=== PATIENT | female | born 1995 | race Caucasian/White ===

== ENCOUNTER 2021-04-14 07:43 | Emergency (ER) | payer MEDICAID, SELFPAY ==
[2021-04-14 07:53] VITALS: BP 110/61; PULSE 65; RESP 18; TEMP 36.8; O2SAT 100; BMI 34.3
[2021-04-14 08:03] VITALS: BP 110/61; PULSE 65; RESP 18; TEMP 36.8; O2SAT 100
--- NOTE | 2021-04-14 08:03 | ED.NAVMDI ---
HPI - Nausea/Vomiting/Diarrhea General Chief complaint: Nausea/Vomiting/Diarrhea Stated complaint: discomfort, nausea pt wants covid test done Time Seen by Provider: 04/14/21 08:03 Source: patient Mode of arrival: ambulatory Limitations: no limitations History of Present Illness MD elicited complaint: nausea Onset (ago): week(s) (1) Associated nausea: Yes Associated abdominal pain: No Location of pain: none Severity: mild Exacerbating factors: eating Relieving factors: none Context: other (? hx of hyperemesis with prior ) Associated symptoms: other (dysuria) Related Data Previous Rx's Medication Instructions Recorded doxylamine succinate 25 mg tablet 25 mg PO BID PRN #30 tab 04/14/21 metoclopramide HCl 5 mg tablet 5 mg PO TID PRN #20 tab 04/14/21 (Reglan) nitrofurantoin 100 mg PO BID 7 Days #14 cap 04/14/21 monohydrate/macrocrystals 100 mg capsule (Macrobid) vits no.108-iron,carbonyl 1 tab PO DAILY #30 tab 04/14/21 30 mg iron-folic acid 1 mg tablet (Kosher Plus Iron) pyridoxine (vitamin B6) 25 mg 25 mg PO BID PRN #30 tab 04/14/21 tablet Allergies Allergy/AdvReac Type Severity Reaction Status Date / Time No Known Allergies Allergy Unverified 05/30/20 17:09 [No Known Allergies*] Review of Systems Review of Systems: Constitutional : No Weight loss, No Fever, No Chills, No Fatigue, No Malaise ENT/Mouth : No sore throat, No Rhinorrhea Eyes: No Eye Pain, No Swelling, No Redness Cardiovascular : No Chest Pain, No SOB, No Dyspnea on Exertion, No Orthopnea, No Edema, No Palpitations Respiratory : No Cough, No Sputum, No Wheezing Gastrointestinal : pos Nausea, pos Vomiting, No Diarrhea, No Constipation, No abdominal Pain, No Hematochezia, No Melena Genitourinary : pos Dysuria, No Urinary Frequency, No Hematuria, pos irregular periods Musculoskeletal : No joint pain, No Myalgias, No Joint Swelling Skin : No Skin Lesions, No rash Neuro : No Weakness, No Numbness, No Dizziness, No Headache Psych : No Anxiety/Panic, No Depression Heme/Lymph: No Bruising, No Bleeding,No Lymphadenopathy Endocrine : No Polyuria, No Polydipsia All other systems reviewed and are negative Gastrointestinal: Gastrointestinal: Reports nausea PMFSH Past Medical History Attestation statement: The following information was validated with the patient. Medical History Anxiety Social History Social History Patient Tobacco Use Status: Never used Tobacco Use of substances other than those prescribed or required for medical reasons: No Advance Directives: Yes Advance Directives Information Provided: Yes Advance Directives on File: No Physical Exam Vital Signs: Vital Signs: Last Vital Signs Temp 98.2 F 04/14/21 08:03 Pulse 65 04/14/21 08:03 Resp 18 04/14/21 08:03 BP 110/61 04/14/21 08:03 Pulse Ox 100 04/14/21 08:03 Body Mass Index 34.3 Appearance: Alert. Oriented X3. No acute distress. Eyes: Pupils equal, round and reactive to light. ENT: Pharynx normal. Neck: Normal inspection. Neck supple. CVS: Normal heart rate and rhythm. Pulses normal. Respiratory: No respiratory distress. Breath sounds normal. Abdomen: Soft and nontender. Skin: Skin warm and dry. Normal skin color. Normal skin turgor. Extremities: No lower extremity edema. No calf ttp Neuro: Oriented X 3. No motor deficit. No sensory deficit. MDM - Nausea/Vomiting/Diarrhea MDM Narrative Medical decision making narrative: 25 yo female G1 - here with dysuria and nausea x 1 week - POS UTI and pos test - not toxic, no abdominal ttp no signs of dehydration, will refer to OBGYN after positive test, given benign abdomen doubt ectopic Lab Data Labs: Lab Results 04/14/21 04/14/21 Range/Units 08:07 08:07 Urine Color YELLOW Urine Appearance HAZY Urine pH 7.0 (5.0-8.0) Ur Specific [place] 1.015 (1.005-1.025) Urine Protein TRACE (NEG-TRACE) MG/DL Urine Glucose (UA) NEG (NEG) MG/DL Urine Ketones 5 (NEG) MG/DL Urine Blood TRACE (NEG) Urine Nitrite POS H (NEG) Ur Leukocyte Esterase NEG (NEG) Urine RBC 0-2 (0) /HPF Urine WBC 5-9 H (0-4) /HPF Ur Squamous Epith Cells 1+ /LPF Urine Bacteria 3+ /LPF Urine Test POSITIVE H (NEGATIVE) Discharge Plan Discharge Clinical Impression: Qualifiers: Weeks of gestation: less than 8 weeks Qualified Code(s): Z3A.01 - Less than 8 weeks gestation of UTI (urinary tract infection) Qualifiers: Urinary tract infection type: acute cystitis Hematuria presence: without hematuria Qualified Code(s): N30.00 - Acute cystitis without hematuria Patient Disposition: Home, Self-Care Instructions: Nausea and Vomiting in (ED) Additional Instructions: return to ED for any worsening symptoms or concerns COVID TEST WAS NEGATIVE please call and follow up with your OB Prescriptions: New nitrofurantoin monohyd/m-cryst [Macrobid] 100 mg capsule 100 mg PO BID 7 Days Qty: 14 RF: 0 metoclopramide HCl [Reglan] 5 mg tablet 5 mg PO TID PRN (Reason: nausea and vomiting) Qty: 20 RF: 0 pyridoxine (vitamin B6) 25 mg tablet 25 mg PO BID PRN (Reason: nausea and vomiting) Qty: 30 RF: 0 doxylamine succinate 25 mg tablet 25 mg PO BID PRN (Reason: nausea and vomiting) Qty: 30 RF: 0 Kosher Plus Iron 30 mg iron- 1 mg tablet 1 tab PO DAILY Qty: 30 RF: 0 Stand Alone Forms: Work/School Release
[2021-04-14 08:14] LABS: Appearance Urine HAZY; Color Urine YELLOW; Glucose Urine UA NEG (NEG); Leukocyte Esterase Urine NEG (NEG); Nitrite Urine POS (NEG); Specific Gravity - Urine 1.015 (1.005-1.025); UACC Culture Trigger YES; Urine Blood TRACE (NEG); Urine Ketones 5 MG/DL (NEG); Urine Protein TRACE MG/DL (NEG-TRACE)
[2021-04-14 08:15] LABS: UPreg QC Valid YES; Urine Pregnancy POSITIVE (NEGATIVE)
[2021-04-14 08:28] LABS: Bacteria Urine 3+ /LPF; RBC Urine 0-2 /HPF (0); Squamous Epithelial Cell Urine 1+ /LPF
[2021-04-14 09:07] LABS: COVID-19 Test Negative (Negative); IDNOW Serial# 9DD0AD1C
== END 2021-04-14 09:16 | disposition home or self-care (01) ==
PROVIDERS: Emergency Provider Emergency Medicine; PCP Pediatrics
DX: O23.11 Infections of bladder in pregnancy, first trimester (principal); N30.00 Acute cystitis without hematuria; O21.9 Vomiting of pregnancy, unspecified; Z3A.01 Less than 8 weeks gestation of pregnancy; Z20.822 Contact with and (suspected) exposure to COVID-19
CPT/HCPCS: 36415; 81001; 81025; 87086; 87088; 87186; 87635; 99284

== ENCOUNTER 2021-04-16 11:55 | Emergency (ER) | payer MEDICAID, SELFPAY ==
[2021-04-16 12:48] VITALS: BP 110/65; PULSE 79; RESP 18; TEMP 36; O2SAT 100; BMI 34.4
--- NOTE | 2021-04-16 13:28 | ED.NAVMDI ---
HPI - Nausea/Vomiting/Diarrhea General Chief complaint: Nausea/Vomiting/Diarrhea Stated complaint: vomiting - +preg Time Seen by Provider: 04/16/21 13:27 Source: patient Mode of arrival: ambulatory Limitations: no limitations History of Present Illness HPI Narrative: 25 y/o female who presents to the ER with c/o persistent nausea and vomiting for the last 2 days. She has been unable to keep anything down and is vomiting throughout the night. She reports some abdominal soreness when she vomits but no abdominal pain. She denies vaginal bleeding or cramping. No vaginal discharge, fever or chills. She thinks her LMP was sometime in January but she reports having irregular periods. She was seen here on 04/14 for nausea and r/o COVID, found to be . MD elicited complaint: nausea and vomiting Onset (ago): day(s) Description of vomiting: bilious Associated nausea: Yes Associated abdominal pain: Yes Location of pain: diffuse Pain consistency: intermittent Severity: mild Quality: aching Exacerbating factors: eating Relieving factors: none Associated symptoms: loss of appetite, malaise, nausea/vomiting and weakness Treatment prior to arrival: other (reglan) Related Data Previous Rx's Medication Instructions Recorded doxylamine succinate 25 mg tablet 25 mg PO BID PRN #30 tab 04/14/21 metoclopramide HCl 5 mg tablet 5 mg PO TID PRN #20 tab 04/14/21 (Reglan) nitrofurantoin 100 mg PO BID 7 Days #14 cap 04/14/21 monohydrate/macrocrystals 100 mg capsule (Macrobid) vits no.108-iron,carbonyl 1 tab PO DAILY #30 tab 04/14/21 30 mg iron-folic acid 1 mg tablet (Kosher Plus Iron) pyridoxine (vitamin B6) 25 mg 25 mg PO BID PRN #30 tab 04/14/21 tablet promethazine 25 mg rectal 25 mg SD Q6H PRN #12 ea 04/16/21 suppository Allergies Allergy/AdvReac Type Severity Reaction Status Date / Time No Known Allergies Allergy Unverified 05/30/20 17:09 [No Known Allergies*] Review of Systems Constitutional: Constitutional: Denies chills, Reports fatigue, Denies fever(s), Reports lethargy and Reports malaise Eyes: Eyes: Reports no additional eye complaints ENT: Reports system reviewed and no additional complaints, except as documented and Denies dizziness Cardiovascular: Cardiovascular: Denies chest pain, Denies syncope and Denies dyspnea on exertion Respiratory: Respiratory: Denies cough, Denies pain on inspiration and Denies dyspnea on exertion Gastrointestinal: Gastrointestinal: Reports abdominal pain, Denies coffee ground emesis, Denies GI cramping, Reports nausea, Reports vomiting and Denies hematemesis Genitourinary: Genitourinary: Denies abnormal vaginal bleeding, Denies hematuria, Denies dysuria, Denies flank pain, Denies urinary incontinence, Denies urinary hesitancy and Denies urinary urgency Musculoskeletal: Musculoskeletal: Denies myalgias Neurologic: Denies dizziness and Denies syncope Endocrine: Endocrine: Reports fatigue PMF Past Medical History Medical History Anxiety Social History Social History Patient Tobacco Use Status: Never used Tobacco Advance Directives: No Advance Directives Information Provided: No Patient : Yes Physical Exam Vital Signs: Vital Signs: Last Vital Signs Temp 96.8 F 04/16/21 12:48 Pulse 55 04/16/21 15:52 Resp 18 04/16/21 15:52 BP 102/49 L 04/16/21 15:52 Pulse Ox 100 04/16/21 15:52 Body Mass Index 34.4 Appearance: Alert. Oriented X3. No acute distress. Eyes: Pupils equal, round and reactive to light. ENT: Pharynx normal. Neck: Normal inspection. Neck supple. CVS: Normal heart rate and rhythm. Pulses normal. Respiratory: No respiratory distress. Breath sounds normal. Abdomen: Soft and nontender. +BS x4 Skin: Skin warm and dry. Normal skin color. Normal skin turgor. No rashes. Extremities: No lower extremity edema. Neuro: Oriented X 3. No motor deficit. No sensory deficit. Course Course Course Narrative: 25 y/o female who is currently (found out last week), with unknown LMP presenting with persistent N/V for the last 2 days. She reports history of hyperemesis with her prior . Has been taking B6 and intermittently taking reglan with no improvement. She is on Macrobid for UTI which could be contributing. Will check labs, repeat UA, give IVF and zofran now. Will reassess. Reevaluation(s) Reevaluation #1: K+ on the lower end of normal. Nausea significantly improved, she is tolerating PO. Tolerated PO KCl supplementation as well. UA improving. She is stable for discharge home with trial of SD phenergan for severe vomiting and follow up with PHYSICAL THERAPIST for further management. She is stable for d/c home. MDM - Nausea/Vomiting/Diarrhea Lab Data Result diagrams: 04/16/21 14:19 04/16/21 14:19 Labs: Lab Results 04/16/21 04/16/21 04/16/21 Range/Units 14:19 14:19 14:29 WBC 10.2 (4.8-10.8) X10*3/uL RBC 4.65 (4.20-5.50) X10*6/uL Hgb 13.8 (12.0-16.0) g/dl Hct 40.2 (37-47) % MCV 86.5 (80-98) fL MCH 29.7 (27.0-33.0) pg MCHC 34.3 (31.0-35.0) g/dl RDW 12.8 (11.0-16.0) % Plt Count 238 (160-400) X10*3/uL MPV 10.0 (9.4-12.3) fL Immature Gran % (Auto) 0.3 (0.0-0.4) % Neut % (Auto) 72.2 (45-73) % Lymph % (Auto) 19.6 L (20-40) % [place] % (Auto) 7.6 (2-11) % Eos % (Auto) 0.1 (0-4) % Baso % (Auto) 0.2 (0-2) % Lymph # (Auto) 2.0 (1.2-4.9) X10*3/uL [place] # (Auto) 0.8 (0.1-1.2) X10*3/uL Eos # (Auto) 0.0 (0.0-0.4) X10*3/uL Baso # (Auto) 0.0 (0.0-0.2) X10*3/uL Abs Immat Gran (auto) 0.03 (0.00-0.03) X10*3/uL Absolute Neuts (auto) 7.3 (2.0-8.3) X10*3/uL Absolute Nucleated RBC 0.000 (0.0-0.012) X10*3/uL Nucleated RBC % (auto) 0.0 (0.0-0.2) /100WBC Sodium 136 (135-145) mmol/L Potassium 3.3 (3.3-5.1) mmol/L Chloride 105 (96-108) mmol/L Carbon Dioxide 20 L (22-29) mmol/L Anion Gap 14 (12-20) BUN 6 L (9-16) mg/dL Creatinine 0.68 (0.5-1.4) mg/dL Estim Creat Clear Calc 139.5 Estimated GFR > 60 Random Glucose 88 (60-115) mg/dL Calcium 9.5 (8.4-10.2) mg/dL Magnesium 1.9 (1.6-2.6) mg/dL Total Bilirubin 0.9 (0.0-1.0) mg/dL Direct Bilirubin 0.3 (0.0-0.5) mg/dL AST 14 (5-31) U/L ALT 19 (0-31) U/L Alkaline Phosphatase 50 (39-117) U/L Total Protein 7.0 (6.5-8.0) g/dL Albumin 4.4 (3.5-5.0) g/dL Urine Color YELLOW Urine Appearance CLOUDY Urine pH 6.5 (5.0-8.0) Ur Specific [place] 1.020 (1.005-1.025) Urine Protein TRACE (NEG-TRACE) MG/DL Urine Glucose (UA) NEG (NEG) MG/DL Urine Ketones >=80 (NEG) MG/DL Urine Blood TRACE (NEG) Urine Nitrite NEG (NEG) Ur Leukocyte Esterase TRACE H (NEG) Urine RBC 1-4 (0) /HPF Urine WBC 1-4 (0-4) /HPF Ur Squamous Epith Cells 3+ /LPF Urine Bacteria 1+ /LPF Urine Mucus 1+ /LPF Urine Test (NEGATIVE) 04/16/21 Range/Units 14:29 WBC (4.8-10.8) X10*3/uL RBC (4.20-5.50) X10*6/uL Hgb (12.0-16.0) g/dl Hct (37-47) % MCV (80-98) fL MCH (27.0-33.0) pg MCHC (31.0-35.0) g/dl RDW (11.0-16.0) % Plt Count (160-400) X10*3/uL MPV (9.4-12.3) fL Immature Gran % (Auto) (0.0-0.4) % Neut % (Auto) (45-73) % Lymph % (Auto) (20-40) % [place] % (Auto) (2-11) % Eos % (Auto) (0-4) % Baso % (Auto) (0-2) % Lymph # (Auto) (1.2-4.9) X10*3/uL [place] # (Auto) (0.1-1.2) X10*3/uL Eos # (Auto) (0.0-0.4) X10*3/uL Baso # (Auto) (0.0-0.2) X10*3/uL Abs Immat Gran (auto) (0.00-0.03) X10*3/uL Absolute Neuts (auto) (2.0-8.3) X10*3/uL Absolute Nucleated RBC (0.0-0.012) X10*3/uL Nucleated RBC % (auto) (0.0-0.2) /100WBC Sodium (135-145) mmol/L Potassium (3.3-5.1) mmol/L Chloride (96-108) mmol/L Carbon Dioxide (22-29) mmol/L Anion Gap (12-20) BUN (9-16) mg/dL Creatinine (0.5-1.4) mg/dL Estim Creat Clear Calc Estimated GFR Random Glucose (60-115) mg/dL Calcium (8.4-10.2) mg/dL Magnesium (1.6-2.6) mg/dL Total Bilirubin (0.0-1.0) mg/dL Direct Bilirubin (0.0-0.5) mg/dL AST (5-31) U/L ALT (0-31) U/L Alkaline Phosphatase (39-117) U/L Total Protein (6.5-8.0) g/dL Albumin (3.5-5.0) g/dL Urine Color Urine Appearance Urine pH (5.0-8.0) Ur Specific [place] (1.005-1.025) Urine Protein (NEG-TRACE) MG/DL Urine Glucose (UA) (NEG) MG/DL Urine Ketones (NEG) MG/DL Urine Blood (NEG) Urine Nitrite (NEG) Ur Leukocyte Esterase (NEG) Urine RBC (0) /HPF Urine WBC (0-4) /HPF Ur Squamous Epith Cells /LPF Urine Bacteria /LPF Urine Mucus /LPF Urine Test POSITIVE H (NEGATIVE) Critical Care Time Critical Care Time Critical Care Time: No Discharge Plan Discharge Clinical Impression: Vomiting during Patient Disposition: Home, Self-Care Instructions: Nausea and Vomiting in (ED) Additional Instructions: Recommend continuing the pyridoxine once in the morning and once at night. Use prescribed phenergan suppositories as needed for severe nausea and vomiting. Continue taking your prescribed antibiotics for UTI. Follow up with PHYSICAL THERAPIST. If you develop new or worsening symptoms call 911 or come back to the ER for further evaluation. Prescriptions: New promethazine 25 mg suppository 25 mg SD Q6H PRN (Reason: nausea and vomiting) Qty: 12 RF: 0 No Action nitrofurantoin monohyd/m-cryst [Macrobid] 100 mg capsule 100 mg PO BID 7 Days Qty: 14 RF: 0 metoclopramide HCl [Reglan] 5 mg tablet 5 mg PO TID PRN (Reason: nausea and vomiting) Qty: 20 RF: 0 pyridoxine (vitamin B6) 25 mg tablet 25 mg PO BID PRN (Reason: nausea and vomiting) Qty: 30 RF: 0 doxylamine succinate 25 mg tablet 25 mg PO BID PRN (Reason: nausea and vomiting) Qty: 30 RF: 0 Kosher Plus Iron 30 mg iron- 1 mg tablet 1 tab PO DAILY Qty: 30 RF: 0 Referrals: Garry Cheatham MD [Physician] - 2 days (, hyperemesis)
[2021-04-16 14:23] LABS: MANUAL DIFF FLAG NO
[2021-04-16] MEDS: 0.9 % Sodium Chloride 1,000 ML 999 ML IVCONT ×2 (14:24→15:55)
[2021-04-16 14:25] LABS: Basophils Percent Auto 0.2 % (0-2); Eosinophils Percent Auto 0.1 % (0-4); Hematocrit 40.2 % (37-47); Hemoglobin 13.8 g/dl (12.0-16.0); Imm Gran Abs Auto 0.03 X10*3/uL (0.00-0.03); Imm Gran Pct Auto 0.3 % (0.0-0.4); Lymphocytes Percent Auto 19.6 % (20-40); Mean Corpuscular HGB Conc 34.3 g/dl (31.0-35.0); Mean Corpuscular Hemoglobin 29.7 pg (27.0-33.0); Mean Corpuscular Volume 86.5 fL (80-98); Monocytes Absolute Auto 0.8 X10*3/uL (0.1-1.2); Monocytes Percent Auto 7.6 % (2-11); Neutrophils Absolute Auto 7.3 X10*3/uL (2.0-8.3); Neutrophils Percent Auto 72.2 % (45-73); Platelet Count 238 X10*3/uL (160-400); Red Blood Count 4.65 X10*6/uL (4.20-5.50); Red Cell Distribution Width 12.8 % (11.0-16.0); White Blood Count 10.2 X10*3/uL (4.8-10.8)
[2021-04-16 14:39] LABS: Glucose Urine UA NEG (NEG); Leukocyte Esterase Urine TRACE (NEG); Nitrite Urine NEG (NEG); PH 6.5 (5.0-8.0); UACC Culture Trigger YES; Urine Blood TRACE (NEG); Urine Ketones >=80 MG/DL (NEG); Urine Protein TRACE MG/DL (NEG-TRACE)
[2021-04-16 14:41] LABS: Appearance Urine CLOUDY; Color Urine YELLOW
[2021-04-16 14:42] LABS: UPreg QC Valid YES; Urine Pregnancy POSITIVE (NEGATIVE)
[2021-04-16 14:50] LABS: Bacteria Urine 1+ /LPF; Mucus Urine 1+ /LPF; Squamous Epithelial Cell Urine 3+ /LPF
[2021-04-16 15:04] LABS: Alanine Aminotransferase 19 U/L (0-31); Albumin Level 4.4 g/dL (3.5-5.0); Alkaline Phosphatase 50 U/L (39-117); Anion Gap 14 (12-20); Aspartate Amino Transferase 14 U/L (5-31); Bilirubin Direct 0.3 mg/dL (0.0-0.5); Bilirubin Total 0.9 mg/dL (0.0-1.0); Blood Urea Nitrogen 6 mg/dL (9-16); Calcium 9.5 mg/dL (8.4-10.2); Carbon Dioxide 20 mmol/L (22-29); Chloride 105 mmol/L (96-108); Creatinine Clr Calc Pharmacy 139.5; Estimated Glomerular Filt Rate > 60; Glucose Random 88 mg/dL (60-115); Magnesium 1.9 mg/dL (1.6-2.6); Potassium 3.3 mmol/L (3.3-5.1); Sodium 136 mmol/L (135-145)
--- NOTE | 2021-04-16 15:50 | PC.NURSE ---
Pt able to keep down some crackers and gingerale.
[2021-04-16 15:52] VITALS: BP 102/49; PULSE 55; RESP 18; O2SAT 100
[2021-04-16] MEDS: Potassium Chloride ER 20 MEQ TAB.ER.PRT 40 MEQ PO (15:57)
== END 2021-04-16 17:39 | disposition home or self-care (01) ==
PROVIDERS: Physician Assistant; Emergency Provider Emergency Medicine; PCP Pediatrics
DX: O21.9 Vomiting of pregnancy, unspecified (principal); Z3A.00 Weeks of gestation of pregnancy not specified
CPT/HCPCS: 36415; 80048; 80076; 81001; 81025; 83735; 85025; 87086; 96361; 96374; 99284; J2405

== ENCOUNTER 2022-05-16 20:04 | Emergency (ER) | payer OTHER, MEDICAID, SELFPAY ==
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
[2022-05-16 20:13] VITALS: BP 106/72; BP 108/68; PULSE 100; PULSE 82; RESP 18; TEMP 36.8; O2SAT 100; O2SAT 97; BMI 37.8
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
[2022-05-16 22:19] LABS: MANUAL DIFF FLAG NO
[2022-05-16 22:20] LABS: Basophils Percent Auto 0.4 % (0-2); Eosinophils Percent Auto 1.6 % (0-4); Hematocrit 39.8 % (37.0-47.0); Hemoglobin 13.6 g/dl (12.0-16.0); Imm Gran Pct Auto 0.5 % (0.0-0.4); Lymphocytes Percent Auto 15.2 % (20-40); Mean Corpuscular HGB Conc 34.2 g/dl (31.0-35.0); Mean Corpuscular Volume 87.9 fL (80.0-98.0); Monocytes Percent Auto 8.1 % (2-11); Neutrophils Percent Auto 74.2 % (45-73); Platelet Count 199 X10*3/uL (160-400); Red Blood Count 4.53 X10*6/uL (4.20-5.50); Red Cell Distribution Width 13.1 % (11.0-16.0); White Blood Count 8.1 X10*3/uL (4.8-10.8)
[2022-05-16 22:21] LABS: Eosinophils Absolute Auto 0.1 X10*3/uL (0.0-0.4); Imm Gran Abs Auto 0.04 X10*3/uL (0.00-0.03); Lymphocytes Absolute Auto 1.2 X10*3/uL (1.2-4.9); Monocytes Absolute Auto 0.7 X10*3/uL (0.1-1.2)
[2022-05-16 22:35] LABS: Alanine Aminotransferase 37 U/L (0-31); Albumin Level 4.1 g/dL (3.5-5.0); Alkaline Phosphatase 71 U/L (39-117); Anion Gap 14 (12-20); Aspartate Amino Transferase 21 U/L (5-31); Bilirubin Total 0.4 mg/dL (0.0-1.0); Blood Urea Nitrogen 10 mg/dL (9-16); Calcium 8.4 mg/dL (8.4-10.2); Carbon Dioxide 23 mmol/L (22-29); Chloride 105 mmol/L (96-108); Creatinine Clr Calc Pharmacy 129.9; Estimated Glomerular Filt Rate > 60; Glucose Random 95 mg/dL (60-115); Potassium 4.2 mmol/L (3.3-5.1); Sodium 138 mmol/L (135-145); Total Protein 6.7 g/dL (6.5-8.0)
[2022-05-16 22:41] LABS: HCG Quantitative 51 mIU/mL
[2022-05-17] MEDS: iohexoL 350 MG/ML 100 ML INFUS..BTL 75 ML IV (00:34)
[2022-05-17 01:24] VITALS: BP 112/65; PULSE 74; RESP 16; TEMP 36.6; O2SAT 98
== END 2022-05-17 01:29 | disposition home or self-care (01) ==
PROVIDERS: Physician Assistant; Emergency Provider Student in an Organized Health Care Education/Training Program
DX: O02.81 Inappropriate change in quantitative human chorionic gonadotropin (hCG) in early pregnancy (principal); O9A.219 Injury, poisoning and certain other consequences of external causes complicating pregnancy, unspecified trimester; Z3A.00 Weeks of gestation of pregnancy not specified; S13.4XXA Sprain of ligaments of cervical spine, initial encounter; S06.0X0A Concussion without loss of consciousness, initial encounter; S39.012A Strain of muscle, fascia and tendon of lower back, initial encounter; V43.52XA Car driver injured in collision with other type car in traffic accident, initial encounter; Y93.89 Activity, other specified; Y92.414 Local residential or business street as the place of occurrence of the external cause; Y99.9 Unspecified external cause status
CPT/HCPCS: 36415; 70450; 71260; 72125; 80053; 84702; 85025; 99284; Q9967

== ENCOUNTER 2022-09-20 22:54 | Emergency (ER) | payer MEDICAID, SELFPAY ==
[2022-09-20 23:01] VITALS: BP 120/70; PULSE 91; RESP 20; TEMP 36.9; O2SAT 97; BMI 38.6
--- OUTSIDE RECORDS SUMMARY | 2022-09-20 23:29 | XMS_ITS | Continuity of Care Document ---
:1995 Author Organization [facility] Address [address] [place] [address]- Care Team Providers Name Role Phone Not on Staff, PCP Primary Care Physician Unavailable Encounter [facility] Date(s): 05/29/20 - 06/30/[address] [address]- [facility] Attending Physician: Natasha Mcmahon CNM Admitting Physician: Natasha Mcmahon CNM Referring Physician: Natasha Mcmahon CNM Allergies, Adverse Reactions, Alerts Substance Reaction Severity Status NKA Active Immunizations Given and Recorded Vaccine Date Status Refusal Reason tetanus/diphtheria/pertussis, acel(Tdap) 07/01/16 Given influenza virus vaccine, inactivated1 07/01/16 Given Influenza Virus Vaccine (oldterm)2 07/05/08 Given Meningococcal Conjugate Vaccine3 07/05/08 Given Tet/Diphth/Acel, Pertussis (oldterm)4 07/05/08 Given Human Papillomavirus Vaccine5 07/05/08 Given Human Papillomavirus Vaccine6 03/31/07 Given Human Papillomavirus Vaccine 01/19/07 Given 1Result Comment: [07/01/2016] Observed patient for 15mins tolerated well..sr/ma2 Admin Note: SANOFI PASTEUR VIS GIVEN [id number] Note: VIS GIVEN---MENACTRA, SANOFI [id number] Note: vis [id number] Note: VIS [id number] Note: VIS 05/18/06 Medications Multivitamins with Vitamin B Complex, Vitamin C, Minerals and L- Methylfolate oral capsule 1 capsule, By Mouth, Daily, # 30 capsule, 10 Refills, Maintenance, 04/26/19 15:46:10 EDT, Capsule, 1capsule By Mouth Daily,x30 days Start Date: 04/26/19 Stop Date: 03/21/20 Status: Ordered Problem List Condition Effective Dates Status Health Status Informant care in third Active trimester(Confirmed) HCV antibody positive, undetectable Active viral load(Confirmed) Learning difficulties(Confirmed) Active Social History Social History Type Response Smoking Status Former smoker, quit more francoise n 30 days ago; Other: Quit 02/2019; entered on: 04/26/19 Sex
--- OUTSIDE RECORDS SUMMARY | 2022-09-20 23:29 | XMS_ITS | Continuity of Care Document ---
:1995 Author Organization [facility] Address [address] [place] [id number]- Care Team Providers Name Role Phone Not on Staff, PCP Primary Care Physician Unavailable Encounter [facility] Date(s): 05/28/20 - 06/27/[address] [address]- [facility] Allergies, Adverse Reactions, Alerts Substance Reaction Severity [...] well..sr/ma2 Admin Note: SANOFI PASTEUR VIS GIVEN [id number] Note: VIS GIVEN---MENACTRA, SANOFI [id number] Note: vis [id number] Note: VIS [id number] Note: VIS 05/18/06 Medications Multivitamins with Vitamin [...]
--- OUTSIDE RECORDS SUMMARY | 2022-09-20 23:29 | XMS_ITS | Continuity of Care Document ---
:1995 [facility] Address [address] [place] [address], [address] [place] [id number]- Care Team Providers Name Role Phone Not on Staff, PCP Primary Care Physician Unavailable Encounter [facility] Date(s): 04/14/21 - 05/14/21 [facility] [address], [address] [place] [id number] Allergies, Adverse Reactions, Alerts Substance Reaction Severity [...] well..sr/ma2 Admin Note: SANOFI PASTEUR VIS GIVEN [id number] Note: VIS GIVEN---MENACTRA, SANOFI [id number] Note: vis [id number] Note: VIS [id number] Note: VIS 05/18/06 Medications Multivitamins with Vitamin [...]
[2022-09-20 23:41] VITALS: BP 114/79; PULSE 89; RESP 19; TEMP 36.3; O2SAT 97
[2022-09-20 23:47] LABS: Influenza A PCR NEGATIVE (Negative); Influenza B PCR NEGATIVE (Negative); Resp Syncy Virus RNA Qual PCR NEGATIVE (Negative); SARS COV2 PCR INHOUSE NEGATIVE (Negative)
--- NOTE | 2022-09-20 23:53 | ED.EAR ---
HPI - Ear Problem General Chief complaint: Ear Problems Stated complaint: ear pain Time Seen by Provider: 09/20/22 23:26 Source: patient Mode of arrival: ambulatory Limitations: no limitations History of Present Illness HPI Narrative: 26-year-old female patient is 22 weeks came in for right ear pain x1 day, patient been having upper respiratory symptoms for 3 days runny nose and congestion with sneezing patient started to have a right ear pain at 20:00, no trauma, no bleeding from the right ear, no recent swimming. Related Data Previous Rx's Medication Instructions Recorded doxylamine succinate 25 mg tablet 25 mg PO BID PRN nausea and 04/14/21 vomiting #30 tabs metoclopramide HCl 5 mg tablet 5 mg PO TID PRN nausea and 04/14/21 (Reglan) vomiting #20 tabs nitrofurantoin 100 mg PO BID 7 days #14 caps 04/14/21 monohydrate/macrocrystals 100 mg capsule (Macrobid) vits no.108-iron,carbonyl 1 tab PO DAILY #30 tabs 04/14/21 30 mg iron-folic acid 1 mg tablet (Kosher Plus Iron) pyridoxine (vitamin B6) 25 mg 25 mg PO BID PRN nausea and 04/14/21 tablet vomiting #30 tabs promethazine 25 mg rectal 25 mg ND Q6H PRN nausea and 04/16/21 suppository vomiting #12 ea lidocaine 5 % topical patch 1 patch topical DAILY PRN pain #15 05/16/22 ea amoxicillin 500 mg tablet 500 mg PO BID #14 tabs 09/20/22 Allergies Allergy/AdvReac Type Severity Reaction Status Date / Time No Known Allergies Allergy Verified 09/20/22 23:05 [No Known Allergies*] Review of Systems Review of Systems: All other systems are reviewed and are negative Constitutional: Reports as per HPI and Reports no additional constitutional complaints Eyes: Reports as per HPI and Reports no additional eye complaints Reports system reviewed and no additional complaints, except as documented Cardiovascular: Reports as per HPI and Reports no additional cardiovascular complaints Respiratory: Reports as per HPI and Reports no additional respiratory complaints Gastrointestinal: Reports as per HPI and Reports no additional gastrointestinal complaints Genitourinary: Reports no additional female genitourinary complaints Musculoskeletal: Reports no additional musculoskeletal complaints Skin/Breast: Reports system reviewed and no additional complaints, except as docu Psychiatric: Reports no additional psychiatric complaints Endocrine: Reports no additional endocrine complaints Hematologic/Lymphatic: Reports no additional hematologic/lymphatic complaints Allergic/Immunologic: Reports no additional allergic/immunologic complaints Reports system reviewed and no additional complaints, except as documented and Reports Abnormal speech present [facility] Past Medical History Medical History Anxiety Social History Social History Alcohol intake: current Alcohol intake frequency: holidays/special occasions only Patient Tobacco Use Status: Never used Tobacco Advance Directives: No Advance Directives Information Provided: Yes Physical Exam Vital Signs: Vital Signs: Last Vital Signs Temp 97.3 F 09/20/22 23:41 Pulse 89 09/20/22 23:41 Resp 19 09/20/22 23:41 BP 114/79 09/20/22 23:41 Pulse Ox 97 09/20/22 23:41 O2 Del Method 09/20/22 23:41 BMI result Body Mass Index 38.6 Vital signs have been reviewed as appeared to be correct. Blood pressure normal. Heart rate normal. Respiration rate normal. Temperature normal. Oxygen saturation normal. Appearance: Alert. Oriented X3. No acute distress. Head: Normal external exam. Normocephalic. Atraumatic. No Ward signs noted. No raccoon eyes noted Eyes: PERRLA. EOMI. Conjunctiva and sclera normal. Eyelids normal. ENT: Right TM erythema, no bulge. Pharynx normal. Uvula midline. Moist mucous membranes. No trismus noted. No drooling noted. No muffled voice noted. Neck: Normal inspection. Neck supple. FROM. No adenopathy. Thyroid Normal. No meningeal signs. No neck mass noted. CVS: Normal heart rate and rhythm. Heart sound normal. No murmurs noted. Pulses normal throughout. Respiratory: No respiratory distress. Painless inspiration. Breath sounds normal. No wheezes/rales/rhonchi noted. Chest nontender. No accessory muscle usage noted or decreased air movement noted. Abdomen: Soft and nontender. Bowel sounds normal in all 4 quadrants. No distention noted. No organomegaly noted. No visible injury noted. Back: No CVA tenderness. Full range of motion noted. Skin: Skin warm and dry. Normal skin color. Normal skin turgor. No rashes/lesions/lacerations noted. Extremities: No lower extremity edema. Extremities exhibit normal range of motion. Extremities nontender. Neuro: Oriented X 3. Cranial nerve exam: II-XII are grossly intact No motor deficit. No sensory deficit. Reflexes normal. Course Course Course Narrative: Right otitis media 22 weeks will start the patient on amoxicillin twice a day for 1 week and taking Tylenol. Medical Decision Making Differential Diagnosis Differential Diagnoses: The differential diagnosis associated with the presentation includes (Otitis media, otitis externa, foreign body in the ear.) Lab Data MDM Lab Attestation statement: I reviewed the patient's lab results. Labs: Lab Results 09/20/22 Range/Units 23:06 Influenza Type A (PCR) NEGATIVE (Negative) Influenza Type B (PCR) NEGATIVE (Negative) RSV RNA Qual (PCR) NEGATIVE (Negative) SARS-CoV-2 RNA (RT-PCR) NEGATIVE (Negative) Discharge Plan Discharge Clinical Impression: Otitis media Patient Disposition: Home, Self-Care Instructions: Ear Infection (ED) Prescriptions: New amoxicillin 500 mg tablet 500 mg PO BID Qty: 14 0RF No Action nitrofurantoin monohyd/m-cryst [Macrobid] 100 mg capsule 100 mg PO BID 7 Days Qty: 14 0RF Rx Instructions: must administer with a meal/food metoclopramide HCl [Reglan] 5 mg tablet 5 mg PO TID PRN (Reason: nausea and vomiting) Qty: 20 0RF pyridoxine (vitamin B6) 25 mg tablet 25 mg PO BID PRN (Reason: nausea and vomiting) Qty: 30 0RF doxylamine succinate 25 mg tablet 25 mg PO BID PRN (Reason: nausea and vomiting) Qty: 30 0RF Kosher Plus Iron 30 mg iron- 1 mg tablet 1 tab PO DAILY Qty: 30 0RF promethazine 25 mg suppository 25 mg ND Q6H PRN (Reason: nausea and vomiting) Qty: 12 0RF lidocaine 5 % adhesive patch,medicated 1 patch topical DAILY PRN (Reason: pain) Qty: 15 0RF Rx Instructions: leave on most painful area for up to 12 hrs
[2022-09-21] MEDS: Amoxicillin 500 MG CAPSULE PO (00:16)
[2022-09-21] MEDS: Acetaminophen 325 MG TABLET 650 MG PO (00:16)
== END 2022-09-21 00:21 | disposition home or self-care (01) ==
PROVIDERS: Emergency Provider Emergency Medicine
DX: H66.93 Otitis media, unspecified, bilateral (principal); Z20.822 Contact with and (suspected) exposure to COVID-19; Z20.828 Contact with and (suspected) exposure to other viral communicable diseases
CPT/HCPCS: 0241U; 99284

== ENCOUNTER 2022-11-07 10:29 | Emergency (ER) | payer MEDICAID, SELFPAY ==
--- NOTE | ~2022-11-07 | XR_ITS ---
EXAMINATION: XR chest 2V CLINICAL INFORMATION: Reason for Exam CHEST PAIN COMPARISON: No prior chest x-ray available in our system for comparison at the time of this dictation. TECHNIQUE: XR chest 2V Lungs and Tangela: Both lungs are clear. Pleura: Normal. Costophrenic angles are sharp. No pneumothorax. Heart: The heart is normal in size. Mediastinum: The mediastinum is within normal limits.. Bones: Skeletal structures included are normal for patient's age. XR/XR chest 2V IMPRESSION: Normal chest x-ray.
--- NOTE | ~2022-11-07 | CT_ITS ---
EXAMINATION: CT ANGIOGRAM OF THE CHEST WITH AND WITHOUT CONTRAST (CT PULMONARY ANGIOGRAM FOR PE) CLINICAL INFORMATION: 29 weeks with abnormal EKG and pleuritic chest pain COMPARISON: None TECHNIQUE: Barium was administered prior to the study to attenuate scattered radiation from the chest to decrease dose to the fetus. Prior to contrast administration, noncontrast localization images were obtained. Subsequently, multidetector volumetric imaging was performed from the thoracic inlet to below the diaphragms following the administration of 65 mL Omnipaque 350 intravenous contrast. No contrast reaction reported Sagittal, coronal, and MIP oblique sagittal reformatted images were obtained on the CT workstation, uploaded to PACS, and reviewed. This CT examination was performed using dose optimization techniques as appropriate, variously including the following: *Automated exposure control *Adjustment of mA and/or kV according to patient size (this includes techniques or standardized protocols for targeted exams where dose is matched to indication/reason for exam; i.e. extremities or head) *Use of iterative reconstruction technique Total exam dose-length product 384 mGy-cm FINDINGS: QUALITY OF STUDY/CONTRAST BOLUS: Nondiagnostic PULMONARY ARTERIES: The Hounsfield unit attenuation of the main pulmonary artery is 108 whereas for example the Hounsfield unit attenuation of the left atria is 273 and the descending aorta 266. It is possible to say that there are no emboli in the main pulmonary artery proximal main left and right pulmonary arteries but beyond that, no comments can be made. THORACIC AORTA: No aneurysm or dissection. LUNG: No focal consolidation, nodules or masses. PLEURA: No pleural effusion or pneumothorax. MEDIASTINUM: Normal heart size. No pericardial effusion. No hilar or mediastinal lymphadenopathy. No evidence of septal bowing or right heart strain. CORONARY ARTERY CALCIFICATION: None visualized on this study. CHEST WALL/AXILLA: No axillary or internal mammary lymphadenopathy. OSSEOUS STRUCTURES: No acute or suspicious osseous abnormality. UPPER ABDOMEN: Unremarkable. No reflux of contrast into the hepatic veins to suggest elevated right heart pressures. CT/CT angio chest PE protocol IMPRESSION: 1. Nondiagnostic exam. No emboli are seen in the main pulmonary artery or proximal main left and right pulmonary arteries but beyond that, no comments can be made. 2. VTE: indeterminate.
[2022-11-07 10:34] VITALS: BP 109/69; PULSE 100; RESP 18; O2SAT 97; BMI 39.4
--- NOTE | 2022-11-07 10:35 | ECG_ITS ---
Test Reason : CHEST PAIN Blood Pressure : / mmHG Vent. Rate : 106 BPM Atrial Rate : 106 BPM P-R Int : 158 ms QRS Dur : 082 ms QT Int : 344 ms P-R-T Axes : 008 017 -02 degrees QTc Int : 456 ms Sinus tachycardia Nonspecific T wave abnormality Abnormal ECG When compared with ECG of 10-AUG-2011 22:36, Nonspecific ST and T wave abnormality now present Referred By: Generic ED Physician Electronically Signed By:ROHIT ZARAGOZA
[2022-11-07 11:21] LABS: MANUAL DIFF FLAG NO
[2022-11-07 11:24] LABS: Basophils Percent Auto 0.2 % (0-2); Eosinophils Absolute Auto 0.1 X10*3/uL (0.0-0.4); Eosinophils Percent Auto 0.8 % (0-4); Hematocrit 35.5 % (37.0-47.0); Hemoglobin 11.7 g/dl (12.0-16.0); Imm Gran Abs Auto 0.06 X10*3/uL (0.00-0.03); Imm Gran Pct Auto 0.7 % (0.0-0.4); Lymphocytes Absolute Auto 1.8 X10*3/uL (1.2-4.9); Mean Corpuscular Hemoglobin 27.9 pg (27.0-33.0); Mean Corpuscular Volume 84.7 fL (80.0-98.0); Mean Platelet Volume 10.3 fL (9.4-12.3); Monocytes Absolute Auto 0.7 X10*3/uL (0.1-1.2); Monocytes Percent Auto 7.8 % (2-11); Neutrophils Absolute Auto 6.3 x10*3/uL (2.0-8.3); Neutrophils Percent Auto 70.5 % (45-73); Platelet Count 232 X10*3/uL (160-400); Red Blood Count 4.19 X10*6/uL (4.20-5.50); Red Cell Distribution Width 13.4 % (11.0-16.0)
[2022-11-07 11:35] LABS: COVID-19 Test Negative (Negative); IDNOW Serial# BCCEAD1C
[2022-11-07 12:15] LABS: Anion Gap 12 (12-20); Blood Urea Nitrogen 5 mg/dL (9-16); Calcium 8.7 mg/dL (8.4-10.2); Carbon Dioxide 21 mmol/L (22-29); Chloride 108 mmol/L (96-108); Creatinine Clr Calc Pharmacy 187.4; Estimated Glomerular Filt Rate > 60; Glucose Random 74 mg/dL (60-115); Potassium 4.2 mmol/L (3.3-5.1); Sodium 137 mmol/L (135-145)
[2022-11-07 12:25] LABS: Troponin-I High Sensitivity < 3.5 ng/L (<3.5-17.0)
--- NOTE | 2022-11-07 12:32 | ED_ITS ---
HPI - Chest Pain General Chief Complaint: Chest Pain <Arie Todd MD - Last Filed: 11/07/22 16:39> Stated Complaint: Chest pain (29wks preg) <Arie Todd MD - Last Filed: 11/07/22 16:39> Time Seen by Provider: 11/07/22 12:30 <Arie Todd MD - Last Filed: 11/07/22 16:39> Source: patient <Arie Todd MD - Last Filed: 11/07/22 16:39> Mode of arrival: ambulatory <Arie Todd MD - Last Filed: 11/07/22 16:39> Limitations: no limitations <Arie Todd MD - Last Filed: 11/07/22 16:39> History of Present Illness HPI narrative: patient started getting chest pain this morning, she was in bed. Substernal sharp tightening pain, intermittent. Patient with a history of anxiety. Patient is 29 weeks . Patient states she has minimal swelling <Arie Todd MD - Last Filed: 11/07/22 16:39> MD complaint: chest pain <Arie Todd MD - Last Filed: 11/07/22 16:39> Onset (ago): hour(s) (5) <Arie Todd MD - Last Filed: 11/07/22 16:39> Timing of current episode: episodic <Arie Todd MD - Last Filed: 11/07/22 16:39> Onset: during rest <Arie Todd MD - Last Filed: 11/07/22 16:39> Pain location: substernal <Arie Todd MD - Last Filed: 11/07/22 16:39> Related Data Home Medications: Previous Rx's Medication Instructions Recorded doxylamine succinate 25 mg tablet 25 mg PO BID PRN nausea and 04/14/21 vomiting #30 tabs metoclopramide HCl 5 mg tablet 5 mg PO TID PRN nausea and 04/14/21 (Reglan) vomiting #20 tabs nitrofurantoin 100 mg PO BID 7 days #14 caps 04/14/21 monohydrate/macrocrystals 100 mg capsule (Macrobid) vits no.108-iron,carbonyl 1 tab PO DAILY #30 tabs 04/14/21 30 mg iron-folic acid 1 mg tablet (Kosher Plus Iron) pyridoxine (vitamin B6) 25 mg 25 mg PO BID PRN nausea and 04/14/21 tablet vomiting #30 tabs promethazine 25 mg rectal 25 mg IA Q6H PRN nausea and 04/16/21 suppository vomiting #12 ea lidocaine 5 % topical patch 1 patch topical DAILY PRN pain #15 05/16/22 ea amoxicillin 500 mg tablet 500 mg PO BID #14 tabs 09/20/22 <Arie Todd MD - Last Filed: 11/07/22 16:39> Allergies/Adverse Reactions: Allergies Allergy/AdvReac Type Severity Reaction Status Date / Time No Known Allergies Allergy Verified 09/20/22 23:05 [No Known Allergies*] <Arie Todd MD - Last Filed: 11/07/22 16:39> Review of Systems Review of Systems: Yes all other systems are reviewed and are negative <Arie Todd MD - Last Filed: 11/07/22 16:39> Cardiovascular: Cardiovascular: Reports chest pain <Arie Todd MD - Last Filed: 11/07/22 16:39> Neurologic: Denies Sensory deficit (Neuro) <Arie Todd MD - Last Filed: 11/07/22 16:39> [facility] Past Medical History Medical History: Medical History Anxiety <Arie Todd MD - Last Filed: 11/07/22 16:39> Social History Social History: Social History Alcohol intake: current Alcohol intake frequency: holidays/special occasions only Patient Tobacco Use Status: Never used Tobacco Advance Directives: No Advance Directives Information Provided: Yes <Arie Todd MD - Last Filed: 11/07/22 16:39> Physical Exam Vital Signs: Vital Signs: Last Vital Signs Pulse 83 11/07/22 16:46 Resp 16 11/07/22 16:46 BP 101/65 11/07/22 16:46 Pulse Ox 100 11/07/22 16:46 O2 Del Method 11/07/22 16:46 BMI result Body Mass Index 39.4 <Arie Todd MD - Last Filed: 11/07/22 16:39> Vital Signs: Last Vital Signs Pulse 83 11/07/22 16:46 Resp 16 11/07/22 16:46 BP 101/65 11/07/22 16:46 Pulse Ox 100 11/07/22 16:46 O2 Del Method 11/07/22 16:46 BMI result Body Mass Index 39.4 <Agus Lnida MD - Last Filed: 11/07/22 18:02> Const: General: healthy appearing <Arie Todd MD - Last Filed: 11/07/22 16:39> Nutritional Appearance: obese <Arie Todd MD - Last Filed: 11/07/22 16:39> Orientation/consciousness: oriented to person and patient oriented x3 <Arie Todd MD - Last Filed: 11/07/22 16:39> Limitations: no limitations <Arie Todd MD - Last Filed: 11/07/22 16:39> HEENT: Head: Yes normal to inspection <Arie Todd MD - Last Filed: 11/07/22 16:39> Ears: external ears normal <Arie Todd MD - Last Filed: 11/07/22 16:39> General nose exam: Normal external nose present <Arie Todd MD - Last Filed: 11/07/22 16:39> Mouth: Normal oral and palatal mucosa present and oropharynx normal <Arie Todd MD - Last Filed: 11/07/22 16:39> Throat: Yes posterior oropharynx normal <Arie Todd MD - Last Filed: 11/07/22 16:39> Eyes: General: appearance normal, both eyes and all related structures <Arie Todd MD - Last Filed: 11/07/22 16:39> Neck: Other: supple <Arie Todd MD - Last Filed: 11/07/22 16:39> Neck: Yes normal visual inspection <Arie Todd MD - Last Filed: 11/07/22 16:39> Chest: Other: very reproducible chest pain on palpation <Arie Todd MD - Last Filed: 11/07/22 16:39> Resp: Auscultation: clear to auscultation bilaterally <Arie Todd MD - Last Filed: 11/07/22 16:39> Cardio: Jugular venous distension: no JVD <Arie Todd MD - Last Filed: 11/07/22 16:39> Rate: regular rate <Arie Todd MD - Last Filed: 11/07/22 16:39> Rhythm: regular rhythm <Arie Todd MD - Last Filed: 11/07/22 16:39> Heart sounds: S1 normal heart sound present and S2 normal heart sound present <Arie Todd MD - Last Filed: 11/07/22 16:39> GI: Inspection: Yes normal to inspection <Arie Todd MD - Last Filed: 11/07/22 16:39> Palpation (GI): Soft to palpation, nontender and No hepatosplenomegaly present <Arie Todd MD - Last Filed: 11/07/22 16:39> Auscultation: normal bowel sounds <Arie Todd MD - Last Filed: 11/07/22 16:39> : General: Yes no CVA tenderness <Arie Todd MD - Last Filed: 11/07/22 16:39> Back/Spine/Pelvis: Back: no CVA tenderness <Arie Todd MD - Last Filed: 11/07/22 16:39> Skin: General skin exam: no rashes or lesions noted <Arie Todd MD - Last Filed: 11/07/22 16:39> Neuro: General: oriented to person and patient oriented x3 <Arie Todd MD - Last Filed: 11/07/22 16:39> Cranial nerves: Yes CN's II-XII intact bilaterally <Arie Todd MD - Last Filed: 11/07/22 16:39> Motor exam (neuro): 5/5 motor strength present throughout <Arie Todd MD - Last Filed: 11/07/22 16:39> Sensory Exam: No Sensory deficit (Neuro) <Arie Todd MD - Last Filed: 02/25/23 16:39> Extrem: General: Yes normal to inspection <Arie Todd MD - Last Filed: 11/07/22 16:39> Psych: Appearance: grossly normal <Arie Todd MD - Last Filed: 11/07/22 16:39> Course Reevaluation(s) Reevaluation #1: patient with positive ddimer will check CTA and make sure she does not have a PE as she is 29 weeks . Discused the risks and benefits of CTA given that she is 29 weeks <Arie Todd MD - Last Filed: 11/07/22 16:39> Time: 16:37 <Arie Todd MD - Last Filed: 11/07/22 16:39> Reevaluation #2: I assumed care of this patient from my colleague, Dr. Todd at 16:30 hours. I did interview the patient examine the patient. The patient is 29 weeks . She states she was in bed with her 11 month old child when she had a sudden onset of chest pain. She states that the pain was a sharp pain located in the center of her chest. She states that the pain is worse if she pushes on her chest or if she moves her chest. She states that she can not take a deep breath in and at the end of expiration she may have some slight pain but the pain is worse with movement and pressure on her chest. She states that she has shortness of breath but she attributes this to her and it is not any worse today. She denied fever, chills, cough, pain or swelling in her lower extremities. The patient's D-dimer was elevated at 280. She had mild anemia with an H&H of 11.7 and 35.5. Patient's CMP was normal. Troponin was not elevated. COVID-19 was negative. Chest x-ray was unremarkable. CT pulmonary angiogram PE protocol was a nondiagnostic study. I did discuss this with the radiologist, there are no large blood clots noted in the main pulmonary artery or proximal left main and right pulmonary arteries but smaller pulmonary emboli cannot be excluded based on the limited contrast in these arteries. On my examination the patient does have tenderness palpation over her costochondral joints. Given her presentation and her workup I do not think that she has a pulmonary embolism and I believe that she has costochondritis. Patient was advised to take Tylenol for pain. She was given printed and verbal instructions and discharged home. I did tell her however her symptoms get worse in any way she should return to the emergency department immediately we can re- evaluate her other possible causes of her chest pain. <Agus Linda MD - Last Filed: 11/07/22 18:02> Time: 17:51 <Agus Linda MD - Last Filed: 11/07/22 18:02> Medical Decision Making Differential Diagnosis Differential Diagnoses: The differential diagnosis associated with the presentation includes (chest pain, PE, costrochondritis) <Arie Todd MD - Last Filed: 11/07/22 16:39> Admission/Observation Consideration of admission/observation: Escalation of care including admission/observation considered (patient is 29 weeks with pleuritic chest pain, tachycardia, and positive ddimer. Admission was considered) <Arie Todd MD - Last Filed: 11/07/22 16:39> Lab Data MDM Lab Attestation statement: I reviewed the patient's lab results. <Arie Todd MD - Last Filed: 11/07/22 16:39> Result Diagrams: 11/07/22 11:01 11/07/22 11:01 <Arie Todd MD - Last Filed: 11/07/22 16:39> Labs: Lab Results 11/07/22 11/07/22 11/07/22 Range/Units 10:47 11:01 11:01 WBC 9.0 (4.8-10.8) X10*3/uL RBC 4.19 L (4.20-5.50) X10*6/uL Hgb 11.7 L (12.0-16.0) g/dl Hct 35.5 L (37.0-47.0) % MCV 84.7 (80.0-98.0) fL MCH 27.9 (27.0-33.0) pg MCHC 33.0 (31.0-35.0) g/dl RDW 13.4 (11.0-16.0) % Plt Count 232 (160-400) X10*3/uL MPV 10.3 (9.4-12.3) fL Immature Gran % (Auto) 0.7 H (0.0-0.4) % Neut % (Auto) 70.5 (45-73) % Lymph % (Auto) 20.0 (20-40) % [place] % (Auto) 7.8 (2-11) % Eos % (Auto) 0.8 (0-4) % Baso % (Auto) 0.2 (0-2) % Lymph # (Auto) 1.8 (1.2-4.9) X10*3/uL [place] # (Auto) 0.7 (0.1-1.2) X10*3/uL Eos # (Auto) 0.1 (0.0-0.4) X10*3/uL Baso # (Auto) 0.0 (0.0-0.2) X10*3/uL Abs Immat Gran (auto) 0.06 H (0.00-0.03) X10*3/uL Absolute Neuts (auto) 6.3 (2.0-8.3) x10*3/uL Absolute Nucleated RBC 0.000 (0.0-0.012) X10*3/uL Nucleated RBC % (auto) 0.0 (0.0-0.2) /100WBC D-Dimer High Sensitivty NG/ML Sodium 137 (135-145) mmol/L Potassium 4.2 (3.3-5.1) mmol/L Chloride 108 (96-108) mmol/L Carbon Dioxide 21 L (22-29) mmol/L Anion Gap 12 (12-20) BUN 5 L (9-16) mg/dL Creatinine 0.54 (0.5-1.4) mg/dL Estim Creat Clear Calc 187.4 Estimated GFR > 60 Random Glucose 74 (60-115) mg/dL Calcium 8.7 (8.4-10.2) mg/dL Troponin I High Sens (<3.5-17.0) ng/L COVID-19 (APRIL) Negative (Negative) COVID-19 Clin Com See Note 11/07/22 11/07/22 Range/Units 11:01 13:09 WBC (4.8-10.8) X10*3/uL RBC (4.20-5.50) X10*6/uL Hgb (12.0-16.0) g/dl Hct (37.0-47.0) % MCV (80.0-98.0) fL MCH (27.0-33.0) pg MCHC (31.0-35.0) g/dl RDW (11.0-16.0) % Plt Count (160-400) X10*3/uL MPV (9.4-12.3) fL Immature Gran % (Auto) (0.0-0.4) % Neut % (Auto) (45-73) % Lymph % (Auto) (20-40) % [place] % (Auto) (2-11) % Eos % (Auto) (0-4) % Baso % (Auto) (0-2) % Lymph # (Auto) (1.2-4.9) X10*3/uL [place] # (Auto) (0.1-1.2) X10*3/uL Eos # (Auto) (0.0-0.4) X10*3/uL Baso # (Auto) (0.0-0.2) X10*3/uL Abs Immat Gran (auto) (0.00-0.03) X10*3/uL Absolute Neuts (auto) (2.0-8.3) x10*3/uL Absolute Nucleated RBC (0.0-0.012) X10*3/uL Nucleated RBC % (auto) (0.0-0.2) /100WBC D-Dimer High Sensitivty 280 NG/ML Sodium (135-145) mmol/L Potassium (3.3-5.1) mmol/L Chloride (96-108) mmol/L Carbon Dioxide (22-29) mmol/L Anion Gap (12-20) BUN (9-16) mg/dL Creatinine (0.5-1.4) mg/dL Estim Creat Clear Calc Estimated GFR Random Glucose (60-115) mg/dL Calcium (8.4-10.2) mg/dL Troponin I High Sens < 3.5 (<3.5-17.0) ng/L COVID-19 (APRIL) (Negative) COVID-19 Clin Com <Arie Todd MD - Last Filed: 11/07/22 16:39> Lab Results 11/07/22 11/07/22 11/07/22 Range/Units 10:47 11:01 11:01 WBC 9.0 (4.8-10.8) X10*3/uL RBC 4.19 L (4.20-5.50) X10*6/uL Hgb 11.7 L (12.0-16.0) g/dl Hct 35.5 L (37.0-47.0) % MCV 84.7 (80.0-98.0) fL MCH 27.9 (27.0-33.0) pg MCHC 33.0 (31.0-35.0) g/dl RDW 13.4 (11.0-16.0) % Plt Count 232 (160-400) X10*3/uL MPV 10.3 (9.4-12.3) fL Immature Gran % (Auto) 0.7 H (0.0-0.4) % Neut % (Auto) 70.5 (45-73) % Lymph % (Auto) 20.0 (20-40) % [place] % (Auto) 7.8 (2-11) % Eos % (Auto) 0.8 (0-4) % Baso % (Auto) 0.2 (0-2) % Lymph # (Auto) 1.8 (1.2-4.9) X10*3/uL [place] # (Auto) 0.7 (0.1-1.2) X10*3/uL Eos # (Auto) 0.1 (0.0-0.4) X10*3/uL Baso # (Auto) 0.0 (0.0-0.2) X10*3/uL Abs Immat Gran (auto) 0.06 H (0.00-0.03) X10*3/uL Absolute Neuts (auto) 6.3 (2.0-8.3) x10*3/uL Absolute Nucleated RBC 0.000 (0.0-0.012) X10*3/uL Nucleated RBC % (auto) 0.0 (0.0-0.2) /100WBC D-Dimer High Sensitivty NG/ML Sodium 137 (135-145) mmol/L Potassium 4.2 (3.3-5.1) mmol/L Chloride 108 (96-108) mmol/L Carbon Dioxide 21 L (22-29) mmol/L Anion Gap 12 (12-20) BUN 5 L (9-16) mg/dL Creatinine 0.54 (0.5-1.4) mg/dL Estim Creat Clear Calc 187.4 Estimated GFR > 60 Random Glucose 74 (60-115) mg/dL Calcium 8.7 (8.4-10.2) mg/dL Troponin I High Sens (<3.5-17.0) ng/L COVID-19 (APRIL) Negative (Negative) COVID-19 Clin Com See Note 11/07/22 11/07/22 Range/Units 11:01 13:09 WBC (4.8-10.8) X10*3/uL RBC (4.20-5.50) X10*6/uL Hgb (12.0-16.0) g/dl Hct (37.0-47.0) % MCV (80.0-98.0) fL MCH (27.0-33.0) pg MCHC (31.0-35.0) g/dl RDW (11.0-16.0) % Plt Count (160-400) X10*3/uL MPV (9.4-12.3) fL Immature Gran % (Auto) (0.0-0.4) % Neut % (Auto) (45-73) % Lymph % (Auto) (20-40) % [place] % (Auto) (2-11) % Eos % (Auto) (0-4) % Baso % (Auto) (0-2) % Lymph # (Auto) (1.2-4.9) X10*3/uL [place] # (Auto) (0.1-1.2) X10*3/uL Eos # (Auto) (0.0-0.4) X10*3/uL Baso # (Auto) (0.0-0.2) X10*3/uL Abs Immat Gran (auto) (0.00-0.03) X10*3/uL Absolute Neuts (auto) (2.0-8.3) x10*3/uL Absolute Nucleated RBC (0.0-0.012) X10*3/uL Nucleated RBC % (auto) (0.0-0.2) /100WBC D-Dimer High Sensitivty 280 NG/ML Sodium (135-145) mmol/L Potassium (3.3-5.1) mmol/L Chloride (96-108) mmol/L Carbon Dioxide (22-29) mmol/L Anion Gap (12-20) BUN (9-16) mg/dL Creatinine (0.5-1.4) mg/dL Estim Creat Clear Calc Estimated GFR Random Glucose (60-115) mg/dL Calcium (8.4-10.2) mg/dL Troponin I High Sens < 3.5 (<3.5-17.0) ng/L COVID-19 (APRIL) (Negative) COVID-19 Clin Com <Agus Linda MD - Last Filed: 11/07/22 18:02> Independent Interpretation I performed an independent interpretation of an: EKG (sinus tachycardia 106, flipped ts V1-V3) and Plain X-Ray (no in filtrate) <Arie Todd MD - Last Filed: 11/07/22 16:39> Discharge Plan Discharge Clinical Impression: Acute costochondritis, and infectious disease in third trimester <Arie Todd MD - Last Filed: 11/07/22 16:39> Patient Disposition: Home, Self-Care <Arie Todd MD - Last Filed: 11/07/22 16:39> Instructions: Costochondritis (ED) <Arie Todd MD - Last Filed: 11/07/22 16:39> Additional Instructions: Your blood work was unremarkable except for a slightly elevated D-dimer. This is a test to tell us whether your making more blood clots than usual however this test is often elevated and and is less accurate when your . The rest of your blood work was normal. Your COVID-19 test was negative. Your chest x-ray was normal. The CT pulmonary angiogram to look for pulmonary emboli (blood clots in your lungs) was limited. There were no large blood clots noted in the large vessels of your pulmonary arteries however the radiologist could not see the smaller pulmonary arteries due to lack of contrast in these arteries. Given your presentation, the fact that your pain is worse with movement and pushing on your chest, I do not think that you have a blood clot at this time and I believe that your pain is due to inflammation of the joints of your chest (costochondritis). Take Tylenol (acetaminophen) 500 mg pills, 2 pills every 4 to 6 hours as needed for pain. Apply ice for 10-15 minutes to your chest wall pain 1 hour after this then you can apply a heating pad on low to your chest wall to see if these local treatments help improve your pain. You can do this 4 to 6 times a day. Do not take any anti-inflammatory medications while your such as aspirin, ibuprofen, Motrin, Advil, Aleve, naproxen. Follow-up with your doctor in 2 days. Please return to the emergency department if your symptoms get worse or if you develop any symptoms that are concerning to you. <Arie Todd MD - Last Filed: 11/07/22 16:39> Prescriptions: No Action nitrofurantoin monohyd/m-cryst [Macrobid] 100 mg capsule 100 mg PO BID 7 Days Qty: 14 0RF Rx Instructions: must administer with a meal/food metoclopramide HCl [Reglan] 5 mg tablet 5 mg PO TID PRN (Reason: nausea and vomiting) Qty: 20 0RF pyridoxine (vitamin B6) 25 mg tablet 25 mg PO BID PRN (Reason: nausea and vomiting) Qty: 30 0RF doxylamine succinate 25 mg tablet 25 mg PO BID PRN (Reason: nausea and vomiting) Qty: 30 0RF Kosher Plus Iron 30 mg iron- 1 mg tablet 1 tab PO DAILY Qty: 30 0RF promethazine 25 mg suppository 25 mg IA Q6H PRN (Reason: nausea and vomiting) Qty: 12 0RF lidocaine 5 % adhesive patch,medicated 1 patch topical DAILY PRN (Reason: pain) Qty: 15 0RF Rx Instructions: leave on most painful area for up to 12 hrs amoxicillin 500 mg tablet 500 mg PO BID Qty: 14 0RF <Arie Todd MD - Last Filed: 11/07/22 16:39>
[2022-11-07 13:21] LABS: D Dimer High Sensitivity 280 NG/ML
[2022-11-07 16:46] VITALS: BP 101/65; PULSE 83; RESP 16; O2SAT 100
== END 2022-11-07 18:08 | disposition home or self-care (01) ==
PROVIDERS: Emergency Medicine; Emergency Provider Emergency Medicine Emergency Medical Services
DX: O26.893 Other specified pregnancy related conditions, third trimester (principal); M94.0 Chondrocostal junction syndrome [Tietze]; R79.1 Abnormal coagulation profile; Z3A.29 29 weeks gestation of pregnancy; Z20.822 Contact with and (suspected) exposure to COVID-19
CPT/HCPCS: 36415; 71046; 71275; 80048; 84484; 85025; 85379; 87635; 93005; 99284

== ENCOUNTER 2023-09-08 03:15 | Emergency (ER) | payer MEDICAID, SELFPAY ==
[2023-09-08 03:51] VITALS: BP 113/58; PULSE 76; RESP 16; TEMP 37.1; O2SAT 96; BMI 39.5
--- NOTE | 2023-09-08 05:07 | PC.NURSE ---
Pt is a 27 y/o female who presents to the ED for evaluation of dental pain on the left side. Pt reports pain radiates from her chin up to her left ear. Pt is pending at least one tooth extraction and one root canal on the affected side. Pain became very bothersome at approximately 2200 hours this evening. Pt also c/o left ear pain that started at the same time. Denies fever and any trauma, sore throat or head congestion. No other complaints reported.
--- NOTE | 2023-09-08 07:01 | PC.NURSE ---
Pt is easily arousable with verbal stimuli and oncoming provider was in to see the pt.
--- NOTE | 2023-09-08 07:11 | ED.GENADULT ---
HPI - General Adult General Chief complaint: Dental/Oral Stated complaint: left sided pain Time Seen by Provider: 09/08/23 06:38 Source: patient Mode of arrival: ambulatory Limitations: no limitations History of Present Illness HPI narrative: Patient is a 27 year old assigned female at with a history of poor dentition presenting to the emergency department today with left sided dental and face pain. Patient states that over the last day she has had left sided dental and facial pain. Patient states that she knows she needs to go to the dentist but has not. Patient denies any dizziness, lightheadedness, abdominal pain, nausea, vomiting, fever, chills, blurry vision, double vision, loss of vision, chest pain, difficulty breathing, shortness of breath, back pain, night sweats, pain with urination, increased urinary frequency, increased urinary urgency, blood in her urine or stool, syncope or a near syncopal episode, recent trauma or falls, bowel incontinence, bladder incontinence, bowel retention, bladder retention, or any other complaints at this time. Onset (ago): day(s) (1) Location: face, mouth and left Radiation: non-radiation Severity: mild Severity scale (1-10): 3 Quality: aching and dull Pain Consistency: constant Relieving factors: none Exacerbating factors: none Associated symptoms: denies other symptoms Treatments prior to arrival: none Related Data Previous Rx's Medication Instructions Recorded doxylamine succinate 25 mg tablet 25 mg PO BID PRN nausea and 04/14/21 vomiting #30 tabs metoclopramide HCl 5 mg tablet 5 mg PO TID PRN nausea and 04/14/21 (Reglan) vomiting #20 tabs nitrofurantoin 100 mg PO BID 7 days #14 caps 04/14/21 monohydrate/macrocrystals 100 mg capsule (Macrobid) vits no.108-iron,carbonyl 1 tab PO DAILY #30 tabs 04/14/21 30 mg iron-folic acid 1 mg tablet (Kosher Plus Iron) pyridoxine (vitamin B6) 25 mg 25 mg PO BID PRN nausea and 04/14/21 tablet vomiting #30 tabs promethazine 25 mg rectal 25 mg CA Q6H PRN nausea and 04/16/21 suppository vomiting #12 ea lidocaine 5 % topical patch 1 patch topical DAILY PRN pain #15 05/16/22 ea amoxicillin 500 mg tablet 500 mg PO BID #14 tabs 09/20/22 chlorhexidine gluconate 0.12 % 15 ml buccal BID #118 mL 09/08/23 mouthwash (Peridex) naproxen 500 mg tablet 500 mg PO BID 7 days #14 tabs 09/08/23 ondansetron 4 mg disintegrating 4 mg PO Q8H 3 days #9 tabs 09/08/23 tablet penicillin V potassium 500 mg 500 mg PO BID 10 days #20 tabs 09/08/23 tablet Allergies Allergy/AdvReac Type Severity Reaction Status Date / Time No Known Allergies Allergy Verified 09/20/22 23:05 [No Known Allergies*] Review of Systems Constitutional: Constitutional: Reports no additional constitutional complaints, Denies chills, Denies fever(s) and Denies night sweats Eyes: Eyes: Reports no additional eye complaints, Denies blurry vision, Denies change in vision, Denies diplopia, Denies eye discharge, Denies loss of vision and Denies eye pain ENT: Denies dizziness Comments: left sided facial and dental pain Cardiovascular: Cardiovascular: Reports no additional cardiovascular complaints, Denies chest pain, Denies lightheadedness, Denies Loss of Consciousness and Denies dyspnea Respiratory: Respiratory: Reports no additional respiratory complaints and Denies dyspnea Gastrointestinal: Gastrointestinal: Reports no additional gastrointestinal complaints, Denies abdominal pain, Denies melena, Denies hematochezia, Denies change in bowel habits and Denies change in stool character Genitourinary: Genitourinary: Denies hematuria, Denies urinary frequency, Denies dysuria, Denies urinary incontinence, Denies urinary hesitancy and Denies urinary urgency Musculoskeletal: Musculoskeletal: Reports no additional musculoskeletal complaints, Denies numbness and Denies tingling Neurologic: Denies dizziness, Denies loss of vision, Denies numbness and Denies tingling Psychiatric: Psychiatric: Reports no additional psychiatric complaints Endocrine: Endocrine: Reports no additional endocrine complaints Hematologic/Lymphatic: Hematologic/Lymphatic: Reports no additional hematologic/lymphatic complaints Allergic/Immunologic: Allergic/Immunologic: Reports no additional allergic/immunologic complaints PMFSH Past Medical History Attestation statement: The following information was validated with the patient. Source: old records reviewed and nursing notes reviewed Medical History Anxiety Social History Social History Alcohol intake: current Alcohol intake frequency: holidays/special occasions only Patient Tobacco Use Status: Never used Tobacco Advance Directives: No Advance Directives Information Provided: No Physical Exam ED Vital Signs: Vital Signs - 24 hr 09/08/23 03:51 Temperature 98.7 F Pulse Rate 76 Respiratory Rate 16 Blood Pressure 113/58 L Pulse Oximetry 96 Oxygen Delivery Method Room Air BMI result Body Mass Index 39.5 Const General: cooperative, no acute distress, alert and awake Nutritional Appearance: well nourished Orientation/consciousness: patient oriented x3 Limitations: no limitations HENMT Head: Yes normal to inspection and Yes atraumatic Ears: hearing grossly normal bilaterally and external ears normal General nose exam: Normal external nose present, no nasal discharge noted and no epistaxis Face and sinus: Yes normal facial exam, No abrasion and No laceration Mouth: Normal oral and palatal mucosa present, no drooling and no muffled voice Teeth and gingiva: poor dentition Teeth image: 1. erythema and minimal swelling, no fluctuance felt Eyes General: appearance normal, both eyes and all related structures Periorbital: periorbital findings normal Eyelids: Yes eyelids normal Conjunctivae: conjunctivae normal Pupils: Equal, round and reactive pupils present EOM: EOMs intact bilaterally Neck Neck: Yes normal visual inspection, Yes full ROM and Yes no lymphadenopathy Chest Chest palpation & inspection: normal inspection of the chest Resp Effort & Inspection: normal respiratory effort and able to speak in complete sentences GI Inspection: Yes normal to inspection Neuro General: patient oriented x3 and moves all extremities Cranial nerves: Yes Equal, round and reactive pupils present Cognition (Neuro): normal cognition Motor exam (neuro): 5/5 motor strength present throughout Sensory Exam: Normal double simultaneous stimulation for sensation Coordination: [id number] test normal Extrem General: Yes normal to inspection, Yes full ROM and Yes capillary refill normal Psych Appearance: grossly normal Mental Status: mental status grossly normal Affect: normal affect Attitude: cooperative Thought process: Normal thought process present Thought content: Normal thought content present Insight: Good insight present (Psych) Medical Decision Making Medical Decision Making MDM Narrative: Patient is a 27 year old assigned female at with a history of poor dentition presenting to the emergency department today with left sided dental and facial pain. Patient's physical exam was as noted in the physical exam portion of this note. I explained my physical exam findings to the patient. I answered all questions asked by the patient. I stressed the importance of the patient taking her medication as prescribed. I stressed the importance of the patient following up with her primary care provider and a dentist. I stressed the importance of the patient returning to the emergency department immediately if her symptoms were to worsen or if she were to develop any dizziness, shortness of breath, difficulty breathing, chest pain, blurry vision, loss of vision, nausea, vomiting, abdominal pain, fever, chills, back pain, or any other complaints. Patient verbalized agreement and understanding with this treatment plan and discharge. Differential Diagnosis Differential Diagnoses: The differential diagnosis associated with the presentation includes Dental pain Dental abscess Admission/Observation Consideration of admission/observation: Escalation of care including admission/observation considered Patient would have been admitted to the hospital had her work up had any findings where hospital admission was appropriate and her clinical presentation warranted hospital admission. Prescription Management I considered prescription management with: Pain Medication (patient prescribed pain medication) and Antibiotic (patient prescribed an antibiotic to cover for dental abscess) Discharge Plan Discharge Clinical Impression: Dental abscess Patient Disposition: Home, Self-Care Instructions: Dental Abscess (ED) Additional Instructions: Follow up with your primary care provider and a dentist. Return to the emergency department immediately if your symptoms worsen or if you develop any dizziness, shortness of breath, difficulty breathing, chest pain, blurry vision, loss of vision, nausea, vomiting, abdominal pain, fever, chills, back pain, or any other complaints. Call or visit any of the clinics below to establish with a dentist: [facility] [address] [place] [address] [facility] [address] [facility], [address] Vikas Herring [address] [place] [id number] [facility] [address] [place] [id number] [facility] [address] [place] [address] [place] [address] [place] [address] Prescriptions: New penicillin V potassium 500 mg tablet 500 mg PO BID 10 Days Qty: 20 0RF ondansetron 4 mg tablet,disintegrating 4 mg PO Q8H 3 Days Qty: 9 0RF naproxen 500 mg tablet 500 mg PO BID 7 Days Qty: 14 0RF chlorhexidine gluconate [Peridex] 0.12 % mouthwash 15 ml buccal BID Qty: 118 0RF No Action nitrofurantoin monohyd/m-cryst [Macrobid] 100 mg capsule 100 mg PO BID 7 Days Qty: 14 0RF Rx Instructions: must administer with a meal/food metoclopramide HCl [Reglan] 5 mg tablet 5 mg PO TID PRN (Reason: nausea and vomiting) Qty: 20 0RF pyridoxine (vitamin B6) 25 mg tablet 25 mg PO BID PRN (Reason: nausea and vomiting) Qty: 30 0RF doxylamine succinate 25 mg tablet 25 mg PO BID PRN (Reason: nausea and vomiting) Qty: 30 0RF Kosher Plus Iron 30 mg iron- 1 mg tablet 1 tab PO DAILY Qty: 30 0RF promethazine 25 mg suppository 25 mg CA Q6H PRN (Reason: nausea and vomiting) Qty: 12 0RF lidocaine 5 % adhesive patch,medicated 1 patch topical DAILY PRN (Reason: pain) Qty: 15 0RF Rx Instructions: leave on most painful area for up to 12 hrs amoxicillin 500 mg tablet 500 mg PO BID Qty: 14 0RF Referrals: [facility] [Provider Group] (Call to establish and follow up with a primary care provider. If you already have a primary care provider, please follow up with them.) [facility] [[facility]] (Call to establish and follow up with a primary care provider. If you already have a primary care provider, please follow up with them.) [facility] [Provider Group] (Call to establish and follow up with a primary care provider. If you already have a primary care provider, please follow up with them.) Stand Alone Forms: Work/School Release Print Language: Estonian
[2023-09-08 07:30] VITALS: BP 113/78; PULSE 72; RESP 18; O2SAT 97
[2023-09-08] MEDS: HYDROcodone Bit/Acetam 5/325 TABLET 1 TAB PO (07:37)
== END 2023-09-08 07:40 | disposition home or self-care (01) ==
PROVIDERS: Emergency Provider Emergency Medicine Emergency Medical Services
DX: K04.7 Periapical abscess without sinus (principal)
CPT/HCPCS: 99283

== ENCOUNTER 2025-06-01 15:17 | Emergency (ER) | payer MEDICAID, SELFPAY ==
[2025-06-01 15:34] VITALS: BP 120/70; PULSE 88; RESP 18; TEMP 36.3; O2SAT 97; BMI 41.2
--- NOTE | 2025-06-01 15:35 | ED_ITS ---
HPI - General Adult General Chief complaint: Urogenital-Female Stated complaint: abd pain for few days, bloody urine Time Seen by Provider: 06/01/25 21:06 Source: patient Mode of arrival: ambulatory Limitations: no limitations History of Present Illness ED Provider: Dr. Ling Yost HPI narrative: 29-year-old female with a history of pyelonephritis presenting with dysuria and hematuria ongoing for the last 48 hours or so. Admits that she was diagnosed with pyelonephritis about a month ago and has been taking an antibiotic since then however, her symptoms have persisted slightly in that she has never been pain-free throughout the last month. Describes severe dysuria and this morning had a couple of clots in the toilet bowl. Admits to some foul-smelling vaginal discharge but denies vaginal bleeding. Last bowel movement this morning was a little bit loose but normal, no blood. No reported fever in the last 48 hours. Denies nausea and vomiting. No cough or cold-type symptoms. She is sexually active with 1 partner for the last 6 years. Last menstrual cycle was about 2 weeks ago. Related Data Previous Rx's ?Medication ?Instructions ?Recorded doxylamine succinate 25 mg tablet 25 mg PO BID PRN iris sea and 04/14/21 vomiting #30 tabs metoclopramide HCl 5 mg tablet 5 mg PO TID PRN nausea and 04/14/21 (Reglan) vomiting #20 tabs nitrofurantoin 100 mg PO BID 7 days #14 cap s 04/14/21 monohydrate/macrocrystals 100 mg capsule (Macrobid) vits no.108-iron,carbonyl 1 tab PO DAILY #30 tabs 04/14/21 30 mg iron-folic acid 1 mg tablet (Kosher Plus Iron) pyridoxine (vitamin B6) 25 mg 25 mg PO BID PRN nausea and 04/14/21 tablet vomiting #30 tabs promethazine 25 mg rectal 25 mg WY Q6H PRN nausea and 04/16/21 suppository vomiting #12 ea lidocaine 5 % topical patch 1 patch topical DAILY PRN pain #15 05/16/22 ea amoxicillin 500 mg tablet 500 mg PO BID #14 tabs 09/20 chlorhexidine gluconate 0.12 % 15 ml buccal BID #118 m L 09/08/23 mouthwash (Peridex) naproxen 500 mg tablet 500 mg PO BID 7 days #14 tab s 09/08/23 ondansetron 4 mg disintegrating 4 mg PO Q8H 3 days #9 tabs 09/08/23 tablet penicillin V potassium 500 mg 500 mg PO BID 10 days #2 0 tabs 09/08/23 tablet nitrofurantoin 100 mg PO Q12H 7 days #14 ca ps 06/01/25 monohydrate/macrocrystals 100 mg capsule (Macrobid) phenazopyridine 100 mg tablet 100 mg PO TID PRN pain 6 doses #6 06/01/25 (Pyridium) tabs Allergies Allergy/AdvReac Type Severity Reaction Status Date / Time No Known Allergies (No Known Allergy Verified 06/01/25 15:35 Allergies*) Review of Systems 2 Review of Systems: as per HPI, full review of systems performed and negative but for the above mentioned pertinent positives and negatives. [facility] Past Medical History Medical History Anxiety Social History Social History Alcohol intake: current Alcohol intake frequency: holidays/special occasions only Patient Tobacco Use Status: Never used Tobacco Advance Directives: No Advance Directives Information Provided: No Physical Exam ED Exam Exam: GENERAL: Ill-Appearing, appears uncomfortable. SKIN: Normal skin color for ethnicity, warm, dry, no rashes noted. HEENT:? Normocephalic, atraumatic, no stridor, dry mucous membranes, dentition intact, EOMI. NECK: Soft, supple, full ROM, midline structures nontender, no step-offs, no deformities, no lymphadenopathy. CHEST: Heart regular rhythm, no murmurs, symmetric chest rise and fall. PULMONARY: Clear to auscultation bilaterally, diminished at the bases, no labored breathing, no wheezes/rhales/rhonchi. ABDOMINAL: Soft, nondistended, suprapubic tenderness to palpation with voluntary guarding, positive bowel sounds in all quadrants. : Deferred. MUSCULOSKELETAL: Normal tone, full range of motion, no deformities, no peripheral edema. NEURO: Alert and oriented x3, CN II through XII intact, equal strength and sensation bilateral upper and lower extremities, no focal neurologic deficits.? PSYCHIATRIC: Flat affect, fluid speech, good eye contact and appropriate demeanor. Vital Signs: Vital Signs - 24 hr 06/01/25 15:34 06/01/25 19:41 06/01/25 19:45 Temperature 97.4 F 98.6 F Pulse Rate 88 70 Respiratory Rate 18 Blood Pressure 120/70 100/59 L 121/61 Pulse Oximetry 97 97 Oxygen Delivery Method Room Air Room Air 06/01/25 21:49 Temperature 98.5 F Pulse Rate 77 Respiratory Rate Blood Pressure 121/67 Pulse Oximetry 98 Oxygen Delivery Method Room Air BMI result Body Mass Index 41.2 Course Course Course Narrative: RME, this is a rapid medical exam performed by S[facility] Means please refer to primary provider for complete H&P- 29-year-old female presents for evaluation of lower abdominal pain with burning with urination over the last few days. Plan for labs, urinalysis Medications Administered Discontinued Medications Generic Name Dose Route Start Last Admin Trade Name Freq PRN Reason Stop Dose Admin Ibuprofen 600 mg 06/01/25 22:06 06/01/25 22:18 Ibuprofen 600 Mg Tablet PO 06/01/25 22:07 600 mg ONCE ONE Administration Nitrofurantoin Macrocrystals 100 mg 06/01/25 22:08 06/01/25 22:18 Nitrofurantoin Monohyd/M-Cryst 100 Mg Capsule PO 06/01/25 22:09 100 mg ONCE ONE Administration Phenazopyridine HCl 200 mg 06/01/25 22:06 06/01/25 22:18 Phenazopyridine Hcl 200 Mg Tablet PO 06/01/25 22:07 200 mg ONCE ONE Administration Medical Decision Making Medical Decision Making [facility] Narrative: This patient presents today with a chief complaint of pelvic pain. Differential diagnosis is broad and would include ovarian torsion, PID, TOA, if ectopic , pyelonephritis, kidney stone, UTI among many others. A broad-based workup based on history and physical exam was obtained. Patient was given Motrin and Pyridium for pain control. Urine shows evidence of UTI. We will treat her with Macrobid. Her last urine culture did grow E coli and it was sensitive to Macrobid. Ordered vaginal swabs for potential bacterial vaginosis or other STDs. The patient is sexually active and is having a foul smelling, copious discharge that she is worried about. Discussed use of antibiotics as well as strict return precautions to the emergency department. Patient will be discharged home to follow-up as an outpatient. Differential Diagnosis Differential Diagnoses: The differential diagnosis associated with the presentation includes (As above) Lab Data MDM Lab Attestation statement: I reviewed the patient's lab results. 06/01/25 15:45 06/01/25 15:45 Labs: Lab Results 06/01/25 06/01/25 Range/Units 15:45 15:51 WBC 10.6 (4.8-10.8) X10*3/uL RBC 4.53 (4.20-5.50) X10*6/uL Hgb 13.1 (12.0-16.0) g/dl Hct 38.2 (37.0-47.0) % MCV 84.3 (80.0-98.0) fL MCH 28.9 (27.0-33.0) pg MCHC 34.3 (31.0-35.0) g/dl RDW 13.7 (11.0-16.0) % Plt Count 267 (160-400) X10*3/uL MPV 9.6 (9.4-12.3) fL Immature Gran % (Auto) 0.3 (0.0-0.4) % Neut % (Auto) 65.6 (45-73) % Lymph % (Auto) 23.6 (20-40) % Delta % (Auto) 7.7 (2-11) % Eos % (Auto) 2.5 (0-4) % Baso % (Auto) 0.3 (0-2) % Lymph # (Auto) 2.5 (1.2-4.9) X10*3/uL Delta # (Auto) 0.8 (0.1-1.2) X10*3/uL Eos # (Auto) 0.3 (0.0-0.4) X10*3/uL Baso # (Auto) 0.0 (0.0-0.2) X10*3/uL Abs Immat Gran (auto) 0.03 (0.00-0.03) X10*3/uL Absolute Neuts (auto) 7.0 (2.0-8.3) x10*3/uL Absolute Nucleated RBC 0.000 (0.0-0.012) X10*3/uL Nucleated RBC % (auto) 0.0 (0.0-0.2) /100WBC Sodium 138 (135-145) mmol/L Potassium 4.1 (3.3-5.1) mmol/L Chloride 108 (96-108) mmol/L Carbon Dioxide 25 (22-29) mmol/L Anion Gap 9 L (12-20) BUN 7 L (9-16) mg/dL Creatinine 0.74 (0.5-1.4) mg/dL Estim Creat Clear Calc 136.4 Estimated GFR > 60 Random Glucose 93 (60-115) mg/dL Calcium 8.7 (8.4-10.2) mg/dL Total Bilirubin 0.4 (0.0-1.0) mg/dL AST 29 (5-31) U/L ALT 41 H (0-31) U/L Alkaline Phosphatase 76 (39-117) U/L Total Protein 6.8 (6.5-8.0) g/dL Albumin 4.3 (3.5-5.0) g/dL Lipase 14 (8-78) U/L Beta HCG, Quant < 2 mIU/mL Urine Color Yellow Urine Appearance Cloudy Urine pH 7.0 (5.0-9.0) Ur Specific [place] 1.025 (1.005-1.025) Urine Protein 300 (3+) H (Neg-Trace) mg/dL Urine Glucose (UA) Negative (Negative) mg/dL Urine Ketones Trace (Negative) mg/dL Urine Blood Moderate (2+) H (Negative) Urine Nitrite Negative (Negative) Ur Leukocyte Esterase Large (3+) H (Negative) Urine RBC >20 H (0-2) /HPF Urine WBC >50 H (0-5) /HPF Ur Squamous Epith Cells 0-2 (0-2) /HPF Urine Bacteria 4+ (None Seen) Hyaline Casts 3-5 (0-2) /LPF External Record Review External record reviewed: Inpatient record Discharge Plan Discharge Clinical Impression: Urinary tract infection Patient Disposition: Home, Self-Care Instructions: Urinary Tract Infection in Women (ED) Additional Instructions: Take your antibiotic as prescribed until the course is completed. Do not stop this medication early if you start to feel better. Return to the emergency department with any new or worsening symptoms including: Worsening pain, fevers greater than 100? despite antibiotic treatment, vomiting, or any new symptom that concerns you. Call 911 with any medical emergency. If you do not have a primary care physician, please call the [facility] at [phone] to establish a new primary care physician. While waiting to establish a new primary care physician, you can call our [facility] at [phone] for non-emergency needs. Prescriptions: New phenazopyridine [Pyridium] 100 mg tablet 100 mg PO TID PRN (Reason: pain) Qty: 6 0RF nitrofurantoin monohyd/m-cryst [Macrobid] 100 mg capsule 100 mg PO Q12H 7 Days Qty: 14 0RF Rx Instructions: must administer with a meal/food No Action nitrofurantoin monohyd/m-cryst [Macrobid] 100 mg capsule 100 mg PO BID 7 Days Qty: 14 0RF Rx Instructions: must administer with a meal/food metoclopramide HCl [Reglan] 5 mg tablet 5 mg PO TID PRN (Reason: nausea and vomiting) Qty: 20 0RF pyridoxine (vitamin B6) 25 mg tablet 25 mg PO BID PRN (Reason: nausea and vomiting) Qty: 30 0RF doxylamine succinate 25 mg tablet 25 mg PO BID PRN (Reason: nausea and vomiting) Qty: 30 0RF Kosher Plus Iron 30 mg iron- 1 mg tablet 1 tab PO DAILY Qty: 30 0RF promethazine 25 mg suppository 25 mg WY Q6H PRN (Reason: nausea and vomiting) Qty: 12 0RF lidocaine 5 % adhesive patch,medicated 1 patch topical DAILY PRN (Reason: pain) Qty: 15 0RF Rx Instructions: leave on most painful area for up to 12 hrs amoxicillin 500 mg tablet 500 mg PO BID Qty: 14 0RF penicillin V potassium 500 mg tablet 500 mg PO BID 10 Days Qty: 20 0RF ondansetron 4 mg tablet,disintegrating 4 mg PO Q8H 3 Days Qty: 9 0RF naproxen 500 mg tablet 500 mg PO BID 7 Days Qty: 14 0RF chlorhexidine gluconate [Peridex] 0.12 % mouthwash 15 ml buccal BID Qty: 118 0RF Print Language: Venezuelan
[2025-06-01 15:50] LABS: MANUAL DIFF FLAG NO
[2025-06-01 15:51] LABS: Hematocrit 38.2 % (37.0-47.0); Hemoglobin 13.1 g/dl (12.0-16.0); Imm Gran Abs Auto 0.03 X10*3/uL (0.00-0.03); Imm Gran Pct Auto 0.3 % (0.0-0.4); Lymphocytes Absolute Auto 2.5 X10*3/uL (1.2-4.9); Mean Corpuscular HGB Conc 34.3 g/dl (31.0-35.0); Mean Corpuscular Hemoglobin 28.9 pg (27.0-33.0); Mean Corpuscular Volume 84.3 fL (80.0-98.0); NRBC Abs Auto 0.000 X10*3/uL (0.0-0.012); NRBC Pct Auto 0.0 /100WBC (0.0-0.2); Platelet Count 267 X10*3/uL (160-400); Red Blood Count 4.53 X10*6/uL (4.20-5.50); White Blood Count 10.6 X10*3/uL (4.8-10.8)
[2025-06-01 15:58] LABS: Appearance Urine Cloudy; Glucose Urine UA Negative (Negative); PH 7.0 (5.0-9.0); Specific Gravity - Urine 1.025 (1.005-1.025); UMIC TRIGGER UACC YES
[2025-06-01 16:00] LABS: UACC Culture Trigger YES
[2025-06-01 16:13] LABS: Alanine Aminotransferase 41 U/L (0-31); Albumin Level 4.3 g/dL (3.5-5.0); Alkaline Phosphatase 76 U/L (39-117); Anion Gap 9 (12-20); Aspartate Amino Transferase 29 U/L (5-31); Blood Urea Nitrogen 7 mg/dL (9-16); Calcium 8.7 mg/dL (8.4-10.2); Carbon Dioxide 25 mmol/L (22-29); Chloride 108 mmol/L (96-108); Creatinine Clr Calc Pharmacy 136.4; Estimated Glomerular Filt Rate > 60; Lipase 14 U/L (8-78); Potassium 4.1 mmol/L (3.3-5.1); Sodium 138 mmol/L (135-145); Total Protein 6.8 g/dL (6.5-8.0)
--- OUTSIDE RECORDS SUMMARY | 2025-06-01 19:37 | XMS_ITS | Clinical Summary ---
Author Organization [employer] Address [address] [place] [address] [address] [place] [address] Care Team Providers Care Wood Mill Supervisor Name Role Phone Unavailable Primary Care Provider Unavailabl e Medications butalbital-aceta minophen-caffein e 50-325-40 MG tablet Take 1 tablet by mouth every 6 (six) hours if needed. 01/14/2025 Active Active Problems Patient Care Coordination No te Formatting of this note migh t be different from the original. C3/CM Natasha Tee RN No additional problems on file Immunizations Immunization Administration Dates Next Due DTaP 12/22/2000, 9,09/25/1997,03/12,01/10/1997 HPV, Quadrivalent 07/05/2008,03/31/2007,01/20/20 07 Hep B, Adolescent or Pediatric 10/12/1997,1996,1996 Hib (HbOC) 12/10/1998, 8,03/12/1997,01/10 Influenza Whole 07/05/2008 Influenza injectable quadriv alent IIV4 with preservative 07/19/2019,07/25/2014 Influenza live intranasal qu adrivalent LIAV4 07/12/2013 Influenza, IIV3, injectable 07/01/2016 Influenza, Split (incl. kiara fied surface antigen) 10/01/2010 MMR 12/22/2000,11/13/1997 Meningococcal ACWY, unspecified 07/05/2008 Meningococcal MCV4P ACYW-135 07/05/2008 OPV, Trivalent 12/10/1998, 8,03/12/1997,01/10 Tdap 12/21/2022, 2,07/01/2016,07/05 Varicella 10/01/2010,11/13/1997 Social History Tobacco Use Types Packs/Day Years Used Date Smoking Tobacco: Never Assessed Housing Stability Answer Date Recorded What is your housing situation today? I have greg castaneda 07/19/[address] you li ve. Do you have problems with any of the following? None of the above 07/19/2023 Food Insecurity Answer Date Recorded Within the past 12 months, y ou worried that your food would run out before you got money to buy more: Never True 07/19/2023 Within the past 12 months,th e food you bought just didn't last and you didn't have enough money to get more: Never True 02/2023 Transportation Answer Date Recorded In the past 12 months, has l ack of transportation kept you from medical appts, meetings, work or from getting things needed for daily living? No 07/19/2023 Utilities Answer Date Recorded In the past 12 months, has t he electric, gas, oil or water company threatened to shut off services in your home? No 07/19/2023 Comments Unknown Sex and Gender Information Value Date Recorded Sex Assigned at Female 07/13/2022 10:36 AM EDT Legal Sex Female 10:36 AM EDT Gender Identity Female 07/13/2022 10:36 AM EDT Sexual Orientation Bisexual 07/13/2022 10 :36 AM EDT Last Filed Vital Signs Vital Sign Reading Time Taken Comments Blood Pressure 120/60 03/17/2022 12:07 AM EDT Pulse 80 07/23/2021 12:11 AM EST Temperature - - Respiratory Rate - - Oxygen Saturation - - Inhaled Oxygen Concentration - - Weight 102 kg (225 lb) 03/17/2022 12:07 AM EDT Height 162.6 cm (5' 4 ) 03/17/2022 12:07 AM EDT Body Mass Index 38.62 03/17/2022 12:07 AM EDT Plan of Treatment Health Maintenance Due Date Last Done Comments Depression Screening 1996 HIV Screening 1996 Disability Screening 1996 Alcohol/Substance Use Screening 2008 Tobacco Screening 2008 Family Planning (PISQ) 2011 Hepatitis C Screening 2014 Pap Smear 2017 SDOH Screening 05/06/2024 05/06/2023 COVID-19 Vaccine ( season) 2025 08/11/2021, 07/21/2021 Influenza Vaccine (#1) 2025 9, 07/01/2016, 07/25/2014, Additional history exists DTaP/Tdap/Td Vaccines (10 - Td or Tdap) 12/21/2032 12/21/2022, 10/29/2021, 07/01/2016, Additional history exists Zoster Vaccines (1 of 2) 2046 RSV Patients and Patients Aged 60 years or older (1 - 1-dose 75+ series) 2071 Hepatitis B Vaccines Completed 10/12/1997, 01/10/1997, 1996 HIB Vaccines Completed 12/10/1998, 10/15, 03/12/1997, Additional history exists IPV Vaccines Completed 12/10/1998, 10/15, 03/12/1997, Additional history exists HPV Vaccines Completed 07/05/2008, 03/13, 01/19/2007 Meningococcal Vaccine Aged Out 07/05/2008, 008 No longer eligible based on patient's age to complete this topic Hepatitis A Vaccines Aged Out No long er eligible based on patient's age to complete this topic Meningococcal B Vaccine Aged Out No l onger eligible based on patient's age to complete this topic Pneumococcal Vaccine: Pediatrics (0 to 5 Years) and At-Risk Patients (6 to 49) Years Aged Out No longer eligible based on patient's age to complete this topic RSV under 20 months Aged Out No longe r eligible based on patient's age to complete this topic Rotavirus Vaccines Aged Out No longer eligible based on patient's age to complete this topic Insurance [facility] C3
--- OUTSIDE RECORDS SUMMARY | 2025-06-01 19:37 | XMS_ITS | Encounter Summary ---
Author Organization [facility] Address [address] [place] [phone] Phone Care Team Providers Care Tie Buyer Name Role Phone Maria Elena Nelson NP Primary Care Provider Kathryn payan Encounter Details Date Type Department Care Team (Late st Contact Info) Description 04/29/2017 Conversion Encounter [facility] - [address] [phone] Social History Tobacco Use Types Packs/Day Years Used Date Smoking Tobacco: Never Assessed Comments Unknown Sex and Gender Information Value Date Recorded Sex Assigned at Not on file Legal Sex Female 4:51 PM EDT Gender Identity Not on file Sexual Orientation Not on file documented as of this encounter Plan of Treatment Not on file documented as of this encounter Visit Diagnoses Not on filedocumented in this encounter Care Teams Tie Buyer Relationship Specialty Start Date End Date Maria Elena Nelson NP PCP - General 04/23/17 12/23/22 documented as of this encounter
--- OUTSIDE RECORDS SUMMARY | 2025-06-01 19:37 | XMS_ITS | Clinical Summary ---
Author Organization [facility] Address [address] [place] [address] Phone Care Team Providers Care Java Performance Engineer Name Role Phone Amanda Solo MD Primary Care Provider [phone] Allergies No known active allergies Medications butalbital-acet aminophen-caffe ine (FIORICET, ESGIC) 50-325-40 mg per tablet Take 1 tablet by mouth every 6 (six) hours if needed for headaches or migraine. 20 each Active Active Problems Problem Noted Date Diagnosed Date Pyelonephritis 01/14/2025 Resolved Problems Problem Noted Date Diagnosed Date Resolved Date Sepsis secondary to UTI ([facility] V24, [facility] V28) 01/12/2025 01/14/2025 Surgical History Surgery Date Site/Laterality Comments APPENDECTOMY PROCEDURE: HISTORICAL APPENDECTOMY; COMMENT: done in Medical History Medical History Date Comments Patient denies medical problems DX:Patient denies medical problems Maternal serum screen positi ve for Epznz-Ooxcb-Davcv Syndrome 07/28/2022 DX:Maternal serum screen po sitive for Cpooj-Ixgyg-Mnfcr Syndrome; COMMENT: Tested + for gasper on 07/13/22 Order placed for FOB to be tested also- 08/31/2022 FOB is refusing testing. She reports he states our last baby is fine so he believes he does not need it. Family History Medical History Relation Name Comments No Known Problems Brother 1 No Known Problems Brother 2 No Known Problems Father unknown No Known Problems Maternal Grandmother Other: anxiety, depression and sleep apnea Mother Diabetes Paternal Grandmother No Known Problems Sister Relation Name Status Comments Brother 1 Alive Brother 2 Alive Father unknown Maternal Grandfather Maternal Grandmother Alive Mother Alive Paternal Grandfather unknown Paternal Grandmother Alive Sister Alive Social History Tobacco Use Types Packs/Day Years Used Date Smoking Tobacco: Former Smokeless Tobacco: Never Alcohol Use Standard Drinks/Week Comments Not Currently 0 (1 standard drink = 0.6 oz pur e alcohol) Interpersonal Safety Answer Date Record ed Physical Abuse 01/12/2025 Verbal Abuse 01/12/2025 Comments Unknown Sex and Gender Information Value Date Recorded Sex Assigned at Not on file Legal Sex Female 11:13 PM EST Gender Identity Not on file Sexual Orientation Not on file Obstetrics History Last Filed Vital Signs Vital Sign Reading Time Taken Comments Blood Pressure 108/67 01/14/2025 7:49 AM EDT Pulse 73 01/14/2025 7:49 AM EDT Temperature 36.6 C (97.9 F) 01/14/2025 7:49 AM EDT Respiratory Rate 14 01/14/2025 7:49 AM EDT Oxygen Saturation 100% 01/14/2025 7:49 AM EDT Inhaled Oxygen Concentration - - Weight 104 kg (230 lb) 01/12/2025 4:27 PM EDT Height 162.6 cm (5' 4 ) 01/12/2025 4:27 PM EDT Body Mass Index 39.48 01/12/2025 4:27 PM EDT Plan of Treatment Health Maintenance Due Date Last Done Comments HIV Screening 08/16/2022 Hepatitis C Screening 08/16/2022 Social Influencers of Health Screening 08/16/2022 Cervical Cancer Screening: Pap Smear 05/26/2024 05/26/2021 Depression Screening 09/13/2024 COVID-19 Vaccine ( season) 2025 08/11/2021, 07/21/2021 Influenza Vaccine (#1) 2025 9, 07/01/2016, 07/25/2014, Additional history exists DTaP,Tdap,and Td Vaccines (10 - Td or Tdap) 12/21/2032 12/21/2022, 10/29/2021, 07/01/2016, Additional history exists Hepatitis B Vaccines Completed 10/12/1997, 01/10/1997, 1996 HIB Vaccines Completed 12/10/1998, 10/15, 03/12/1997, Additional history exists IPV Vaccines Completed 12/10/1998, 10/15, 03/12/1997, Additional history exists MMR Vaccines Completed 12/22/2000, 11/13/1997 HPV Vaccines Completed 07/05/2008, 03/13, 01/19/2007 Meningococcal ACWY Vaccine Aged Out 07/05/2008 N o longer eligible based on patient's age to complete this topic Varicella Vaccines Completed 10/01/2010, 11/13/1997 Hepatitis A Vaccines Aged Out No long er eligible based on patient's age to complete this topic Meningococcal B Vaccine Aged Out No l onger eligible based on patient's age to complete this topic Pneumococcal Vaccine: Pediatrics (0 to 5 Years) and At-Risk Patients (6 to 49 Years) Aged Out No longer eligible based on patient's age to complete this topic RSV Immunization Patients Under 20 months Aged Out No longer eligible based on patient's age to complete this topic Procedures Procedure Name Priority Date/Time Associated Diagnosis Comments PAP SMEAR Routine 05/26/2021 from Last 3 Months or Most Recently Relevant to Health Maintenance Results * Pap smear (05/26/2021) 05/26/2021 Narrative HISTORICAL TESTING LAB RESULTING AGENCY - 06/06/2021 7:55 AM EDT [id number] THINPREP PAP, IMAGED: NEGATIVE FOR SQUAMOUS INTRAEPITHELIAL LESION AND MALIGNANCY . TAMMY IS PRESENT. LAURA FORD(ASCP) (CASE ELECTRONICALLY SIGNED 06 05 2021) ADEQUACY: SATISFACTORY ENDOCERVICAL/TRANSFORMATION ZONE COMPONENT ABSENT. SOURCE: THINPREP PAP HPV IF ASCUS, CERVICAL, IMAGED CLINICAL INFORMATION: HPV IF DIAGNOSIS OF ASCUS. , PAP HX NEG. Z12.4 Tiffani Tamez CNM LAB CYTOLOGY ORDERABLES Fin al Result HISTORICAL TESTING LAB RESULTING AGENCY from Last 3 Months or Most Recently Relevant to Health Maintenance Insurance MEDICAID - [place] Advance Directives * Full Code - Default (Latest Code Status on File) Date Activated Date Inactivated Comments 01/12/2025 8:51 PM 01/14/2025 4:17 PM This is order is used when code status has not been discussed with the patient, or code status is otherwise unknown/unconfirmed To update the patient's code status, place a code status order. Do not modify or discontinue any currently active code status orders. Care Teams Java Performance Engineer Relationship Specialty Start Date End Date Amanda Solo MD [address] [place] [phone] PCP - General 07/06/22
--- OUTSIDE RECORDS SUMMARY | 2025-06-01 19:37 | XMS_ITS | Clinical Summary ---
Author Organization [facility] Address [address] [place] [phone] Phone Care Team Providers Care Nurse Monitoring Name Role Phone Unavailable Primary Care Provider Unavailabl e Immunizations Immunization Administration Dates Next Due DTaP 12/22/2000, 9,09/25/1997, 997,01/10/1997 HPV, Quadrivalent 07/05/2008,03/31/2007,01/20/20 07 Hep B, ped/adol 10/12/1997,01/10/1997,1996 Hib (HbOC) 12/10/1998, 8,03/12/1997, 997 Influenza Split 10/01/2010,07/05/2008 Influenza, injectable, quadrivalent 07/25/2014 Influenza, intranasal, quadrivalent 07/12/2013 MMR 12/22/2000,11/13/1997 Meningococcal Conj (Menactra) MCV4P 07/05/2008 OPV 12/10/1998, 8,03/12/1997, 997 Tdap 07/05/2008 Varicella 10/01/2010,11/13/1997 Family History Relation Name Status Comments Other No family histo ry of *CVA/Stroke, No family history of Developmental dislocation of hip, No family history of Cancer, Family history of Hyperlipidemia, Family history of Diabetes mellitus, No family history of *Thrombophilia, No family history of Seizure disorder, Family history of Migraines, No family history of *Sudden /[place] under 55, Family history of Obesity, No family history of *Heart Disease, Family history of ADD/ADHD, No family history of Deafness, Family history of Asthma, No family history of Strabismus Social History Tobacco Use Types Packs/Day Years Used Date Smoking Tobacco: Never Assessed Comments Unknown Sex and Gender Information Value Date Recorded Sex Assigned at Not on file Legal Sex Female 4:51 PM EDT Gender Identity Not on file Sexual Orientation Not on file Last Filed Vital Signs Vital Sign Reading Time Taken Comments Blood Pressure 128/76 07/25/2014 12:00 AM EST Pulse - - Temperature 35.9 C (96.6 F) 05/08/2013 12:00 AM EDT Respiratory Rate - - Oxygen Saturation - - Inhaled Oxygen Concentration - - Weight 102 kg (224 lb 3.2 oz) 07/25/2014 12:00 A M EST Height 161 cm (5' 3.4 ) 07/25/2014 12:00 AM EST Body Mass Index 39.21 07/25/2014 12:00 AM EST Plan of Treatment Health Maintenance Due Date Last Done Comments DTaP,Tdap,and Td Vaccines (7 - Td or Tdap) 07/05/2018 07/05/2008, 12/22/2000, 11/12/1998, Additional history exists Influenza Vaccines (#1) 2025 07/25/20 14, 07/12/2013, 10/01/2010, Additional history exists COVID-19 Vaccine ( season) 2025 Hepatitis B Vaccines Completed 10/12/1997, 01/10/1997, 1996 HIB Vaccines Completed 12/10/1998, 10/15, 03/12/1997, Additional history exists IPV Vaccines Completed 12/10/1998, 10/15, 03/12/1997, Additional history exists MMR Vaccines Completed 12/22/2000, 11/13/1997 HPV Vaccines Completed 07/05/2008, 03/13, 01/19/2007 Meningococcal Vaccine Aged Out 07/05/2008 No allie winifred eligible based on patient's age to complete this topic Varicella Vaccines Completed 10/01/2010, 11/13/1997 Hepatitis A Vaccines Aged Out No long er eligible based on patient's age to complete this topic Men B Vaccine Aged Out No longer elig ible based on patient's age to complete this topic Pneumococcal Vaccine Aged Out No long er eligible based on patient's age to complete this topic Procedures * Due to [place] state law, this organization might not be sharing sensitive test results. Procedure Name Priority Date/Time Associated Diagnosis Comments CHLAMYDIA AND GONORRHEA, AMPLIFIED Routine 04/23/2011 2:09 PM EDT from Last 3 Months or Most Recently Relevant to Health Maintenance Results * Due to [place] state law, this organization might not be sharing sensitive test results. * Chlamydia and Gonorrhoea, Amplified (04/23/2011 2:09 PM EDT) URINE CHLAMYDIA AMP PROBE NEGATIVE [facility] Comment: NO CHLAMYDIA TRACHOMATIS RNA DETECTED IN THIS PATIENT'S SAMPLE. (REFERENCE RANGE/NORMAL VALUE: NOT DETECTED) URINE GC AMP PROBE NEGATIVE [facility] Comment: NO NEISSERIA GONORRHOEAE RNA DETECTED IN THIS PATIENT'S SAMPLE. (REFERENCE RANGE/NORMAL VALUE: NOT DETECTED) NOTE: THIS TEST USES GRAPHICS EDIT TECHNICIAN MEDIATED AMPLIFICATION METHOD TO DETECT rRNA FROM C.TRACHOMATIS AND N.GONORRHOEAE. A NEGATIVE RESULT DOES NOT PRECLUDE INFECTION WITH C.TRACHOMATIS OR N.GONORRHOEAE BECAUSE RESULTS ARE DEPENDENT ON ADEQUATE SPECIMEN COLLECTION, ABSENCE OF INHIBITORS, AND SUFFICIENT rRNA TO BE DETECTED. THE APTIMA COMBO2 ASSAY IS NOT INTENDED FOR THE EVALUATION OF SUSPECTED SEXUAL ABUSE OR FOR OTHER MEDICO LEGAL INDICATIONS. IS TRUE FOR ALL NON CULTURE METHODS, A POSITIVE SPECIMEN OBTAINED FROM A PATIENT AFTER THERAPEUTIC TREATMENT CANNOT BE INTERPRETED INDICATING THE PRESENCE OF VIABLE C.TRACHOMATIS OR N.GONORRHOEAE. THERAPEUTIC FAILURE OR SUCCESS CANNOT BE DETERMINED WITH THE APTIMA COMBO2 ASSAY SINCE NUCLEIC ACID MAY PERSIST FOLLOWING APPROPRIATE ANTIMICROBIAL THERAPY. A NEGATIVE URINE RESULT FOR A PATIENT WHO IS CLINICALLY SUSPECTED OF HAVING A CHLAMYDIAL OR GONOCOCCAL INFECTION DOES NOT RULE OUT THE PRESENCE OF C.TRACHOMATIS OR N.GONORRHOEAE IN THE UROGENITAL TRACT. TESTING OF AN ENDOCERVICAL(FEMALE) OR URETHRAL(MALE) SPECIMEN IS RECOMMENDED IF THERE IS HIGH CLINICAL SUSPICION OF INFECTION. PRESERVCYT LIQUID PAP AND URINE SAMPLING ARE NOT DESIGNED TO REPLACE CERVICAL EXAMS AND ENDOCERVICAL SAMPLES FOR DIAGNOSIS OF FEMALE UROGENITAL INFECTIONS. PATIENTS MAY HAVE CERVICITIS, URETHRITIS, URINARY TRACT INFECTIONS, OR VAGINAL INFECTIONS DUE TO OTHER CAUSES OR CONCURRENT INFECTIONS WITH OTHER AGENTS. 04/23/2011 2:09 PM EDT Narrative [facility] - 04/23/2011 2:09 PM EDT URINE CHLAMYDIA GC AMP PROBE us Zulma Lucas NP LAB MICROBIOLOGY - GENERAL ORD ERABLES Final Result [facility] [address] [place] [address], [place] from Last 3 Months or Most Recently Relevant to Health Maintenance
--- OUTSIDE RECORDS SUMMARY | 2025-06-01 19:37 | XMS_ITS | Encounter Summary ---
Author Organization [employer] Address [address] [facility] [address] [place] [address] Care Team Providers Care Dolphin Researcher Name Role Phone Unavailable Primary Care Provider Unavailabl e Reason for Visit * Reason Onset Date Comments Hospital Follow-up 01/17/2025 Encounter Details Date Type Department Care Team ([facility] Contact Info) Description 01/17/2025 Telephone [facility] [address] [place] [address] Rafi Brooks MD [address] [place] [address] Hospital Follow-up Social History Tobacco Use Types Packs/Day Years Used Date Smoking Tobacco: Never Assessed Housing Stability Answer Date Recorded What is your housing situation today? I have gregveronica castaneda 07/19/[address] you [...] Orientation Bisexual 07/13/2022 10 :36 AM EDT documented as of this encounter Miscellaneous Notes * Telephone Encounter - Sachi Canseco - 01/17/2025 12:44 PM EDT Tc from pt requesting a HDF appt. [facility]: [facility] Date of admission: 01/12/25 Discharge date: 01/14/25 Diagnosed: UTI *Send message to [place] [facility] Coordinators Contact pt at [phone] documented in this encounter Plan of Treatment Not on file documented as of this encounter Visit Diagnoses Not on filedocumented in this encounter
--- OUTSIDE RECORDS SUMMARY | 2025-06-01 19:38 | XMS_ITS | Encounter Summary ---
Author Organization [facility] Address [address] [place] [phone] Phone Care Team Providers Care American Indian Policy Specialist Name Role Phone Maria Elena Nelson NP Primary Care Provider Kathryn payan Encounter Details Date Type Department Care Team (Late st Contact Info) Description 11/04/2012 Documentation EM Family Medicine [address] [place] [address] Family Medicine, Physician [address] [place] [address] Social History Tobacco Use Types Packs/Day Years [...] on filedocumented in this encounter Care Teams American Indian Policy Specialist Relationship Specialty Start Date End Date Maria Elena Nelson NP PCP - General 04/23/17 12/23/22 documented as of this encounter
--- OUTSIDE RECORDS SUMMARY | 2025-06-01 19:38 | XMS_ITS | Encounter Summary ---
Author Organization [facility] Address [address] [place] [phone] Phone Care Team Providers Care Education Professional Name Role Phone Maria Elena Nelson NP Primary Care Provider Kathryn payan Encounter Details Date Type Department Care Team (Late st Contact Info) Description 01/26/2013 Documentation EM Family Medicine [address] [place] [address] Family Medicine, Physician [address] [place] [address] Social History Tobacco Use Types Packs/Day Years [...] on filedocumented in this encounter Care Teams Education Professional Relationship Specialty Start Date End Date Maria Elena Nelson NP PCP - General 04/23/17 12/23/22 documented as of this encounter
--- OUTSIDE RECORDS SUMMARY | 2025-06-01 19:38 | XMS_ITS | Encounter Summary ---
Author Organization [facility] Address [address] [place] [phone] Phone Care Team Providers Care Instructor Programmable Controllers Name Role Phone Maria Elena Nelson NP Primary Care Provider Kathryn payan Encounter Details Date Type Department Care Team (Late st Contact Info) Description 03/20/2013 Documentation EM Family Medicine [address] [place] [address] Family Medicine, Physician [address] [place] [address] Social History Tobacco Use Types Packs/Day Years [...] on filedocumented in this encounter Care Teams Instructor Programmable Controllers Relationship Specialty Start Date End Date Maria Elena Nelson NP PCP - General 04/23/17 12/23/22 documented as of this encounter
--- OUTSIDE RECORDS SUMMARY | 2025-06-01 19:38 | XMS_ITS | Encounter Summary ---
Author Organization [facility] Address [address] [place] [phone] Phone Care Team Providers Care Real Estate Coordinator Name Role Phone Maria Elena Nelson NP Primary Care Provider Kathryn payan Encounter Details Date Type Department Care Team (Late st Contact Info) Description 01/27/2013 Documentation EM Family Medicine [address] [place] [address] Family Medicine, Physician [address] [place] [address] Social History Tobacco Use Types Packs/Day Years [...] on filedocumented in this encounter Care Teams Real Estate Coordinator Relationship Specialty Start Date End Date Maria Elena Nelson NP PCP - General 04/23/17 12/23/22 documented as of this encounter
[2025-06-01 19:41] VITALS: BP 100/59; PULSE 70; TEMP 37; O2SAT 97
[2025-06-01 19:45] VITALS: BP 121/61
[2025-06-01 21:49] VITALS: BP 121/67; PULSE 77; TEMP 36.9; O2SAT 98
[2025-06-01 23:58] VITALS: BP 125/70; PULSE 84; RESP 17; TEMP 37.1; O2SAT 97
[2025-06-01 23:59] VITALS: BP 125/70; PULSE 84; RESP 17; TEMP 37.1; O2SAT 97
[2025-06-02 00:06] LABS: Bacterial Vaginosis PCR POSITIVE (Negative); Candida Group PCR NOT DETECTED (Not Detect); Candida glab krusei PCR NOT DETECTED (Not Detect); Trichomonas vaginalis PCR NOT DETECTED (Not Detect)
[2025-06-02 00:36] LABS: CT PCR NOT DETECTED (Not Detect.); NG PCR NOT DETECTED (Not Detect.)
== END 2025-06-01 23:59 | disposition home or self-care (01) ==
PROVIDERS: Physician Assistant; Emergency Provider Emergency Medicine
DX: N39.0 Urinary tract infection, site not specified (principal); R10.2 Pelvic and perineal pain; R30.0 Dysuria; R31.9 Hematuria, unspecified; Z79.899 Other long term (current) drug therapy
CPT/HCPCS: 36415; 80053; 81001; 81515; 83690; 84702; 85025; 87086; 87088; 87186; 87491; 87591; 99283; 99284